=== PATIENT | male | born 1965 | race Caucasian/White ===

== ENCOUNTER 2023-02-10 15:03 | Outpatient (OUT) | payer OTHER, SELFPAY ==
--- NOTE | 2023-02-10 15:15 | MR_ITS ---
[address] [address] Patient Name: NOEL LOBO MRN: [id number] date: 1965 Sex: M Assigned Patient Location: MRI Current Patient Location: MRI Accession/Order Number: [id number] Exam Date: 02/10/2023 15:59 Report Date: 02/11/2023 10:57 At the request of: CARLIN MERCADO Procedure: MR cervical spine wo con EXAMINATION: MR cervical spine wo con HISTORY: Cervical radicular pain M54.12 ; neck and left shoulder pain COMPARISON: CT C-spine 01/22/2023, MRI C-spine 07/15/2022 TECHNIQUE: A variety of imaging planes and parameters were utilized for visualization of suspected pathology without and/or with intravenous Dotarem contrast based on examination type. FINDINGS: CRANIOCERVICAL AREA: Normal foramen magnum with no Chiari malformation. PARASPINAL AREA: Normal with no visible mass. BONES: No fracture, pars defect, or osseous lesion. CORD: Normal caliber, contour, and signal intensity. CERVICAL DISC LEVELS: C2-C3: Mild foramen narrowing bilaterally secondary to uncovertebral joint spurring. C3-C4: Marked central canal narrowing. Moderate-marked right, marked left foramen narrowing. Mild diffuse disc bulging without disc at reduction. Mild degenerative facet arthropathy. No significant disc height reduction. C4-C5: Marked central canal narrowing. Moderate-marked foramen narrowing bilaterally. Mild diffuse disc bulging without disc height reduction. Uncovertebral joint spurring and mild degenerative facet arthropathy. C5-C6: Marked central canal and right foramen narrowing. Moderate left foramen narrowing. Mild diffuse disc bulging without disc height reduction. Vertebral joint spurring and mild degenerative facet arthropathy. C6-C7: Mild central canal and moderate-marked foramen narrowing bilaterally. Mild diffuse disc bulging without disc at reduction. Uncovertebral joint spurring and mild degenerative facet arthropathy. C7-T1:. No significant central canal narrowing. Mild foramen narrowing bilaterally. No significant disc bulging. Mild facet arthropathy. IMPRESSION: 1. 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 Electronically authenticated by: MARIMAR BRASHER Date: 02/11/2023 10:57
== END 2023-02-10 15:04 ==
LOC: MRI 15:05
PROVIDERS: PCP Family Medicine; Visit Provider Family Medicine
DX: M54.12 Radiculopathy, cervical region (principal)
CPT/HCPCS: 72141

== ENCOUNTER 2023-12-26 15:40 | Outpatient (OUT) | payer OTHER, SELFPAY ==
[2023-12-26 16:37] LABS: Bilirubin Urine NEGATIVE (NEGATIVE); Blood Urine NEGATIVE (NEGATIVE); Clarity Urine CLEAR (CLEAR); Color Urine LT. YELLOW (YELLOW); Glucose Urine UA NEGATIVE (NEGATIVE); Ketones Urine NEGATIVE (NEGATIVE); Leukocyte Esterase Urine NEGATIVE (NEGATIVE); Nitrite Urine NEGATIVE (NEGATIVE); Protein Urine NEGATIVE (NEG/TRACE); Urobilinogen Urine 0.2 EU/dL (0.2-1.0)
[2023-12-26 17:00] LABS: Bacteria Urine NONE SEEN #/HPF (NONE SEEN); Cast Seen? NONE SEEN #/LPF (NONE SEEN); Crystals Seen? None Seen #/HPF (None Seen); Mucus Urine NONE SEEN (NONE SEEN); RBC Urine NONE SEEN #/HPF (0-2); Squamous Epithelial Cell Urine NONE SEEN #/LPF (NONE/RARE); WBC Urine NONE SEEN #/HPF (NONE SEEN)
== END 2023-12-26 15:41 | disposition home or self-care (01) ==
LOC: LAB 15:42
PROVIDERS: PCP Family Medicine; Visit Provider Family Medicine
DX: N39.0 Urinary tract infection, site not specified (principal)
CPT/HCPCS: 81001; 87086

== ENCOUNTER 2024-01-13 15:00 | Outpatient (OUT) | payer OTHER, SELFPAY ==
--- NOTE | 2024-01-13 | XR_ITS ---
The [address] [address] Patient Name: NOEL LOBO MRN: [id number] date: 1965 Sex: M Assigned Patient Location: Current Patient Location: Accession/Order Number: [id number] Exam Date: 01/13/2024 15:00 Report Date: 01/14/2024 06:36 At the request of: TIARRA THORPE Procedure: XR foot LT min 3V PROCEDURE: XR foot LT min 3V HISTORY: LEFT FOOT PAIN ; arch and heel pain COMPARISON: None. FINDINGS: BONES:No fracture, dislocation, bone lesion. Mild degenerative joint disease of the midfoot. Moderate size calcaneal plantar spur and Achilles tendon degenerative enthesophyte. SOFT TISSUES:No visible soft tissue swelling. EFFUSION:None visible. OTHER: Negative. XR/XR foot LT min 3V IMPRESSION: 1. No appreciable acute abnormality. 2. Mild degenerative changes. Electronically authenticated by: MARIAMR BRASHER Date: 01/14/2024 06:36
== END 2024-01-13 15:01 | disposition home or self-care (01) ==
LOC: EC 15:00
PROVIDERS: PCP Family Medicine; Visit Provider Podiatrist Foot & Ankle Surgery
DX: M79.672 Pain in left foot (principal)
CPT/HCPCS: 73630

== ENCOUNTER 2024-01-16 11:41 | Outpatient (OUT) | payer OTHER, SELFPAY ==
[2024-01-16 13:38] LABS: Bilirubin Urine NEGATIVE (NEGATIVE); Blood Urine NEGATIVE (NEGATIVE); Clarity Urine CLEAR (CLEAR); Color Urine LT. YELLOW (YELLOW); Glucose Urine UA NEGATIVE (NEGATIVE); Ketones Urine NEGATIVE (NEGATIVE); Leukocyte Esterase Urine NEGATIVE (NEGATIVE); Nitrite Urine NEGATIVE (NEGATIVE); Protein Urine NEGATIVE (NEG/TRACE); Urobilinogen Urine 0.2 EU/dL (0.2-1.0)
[2024-01-16 13:45] LABS: Bacteria Urine NONE SEEN #/HPF (NONE SEEN); Cast Seen? NONE SEEN #/LPF (NONE SEEN); Crystals Seen? None Seen #/HPF (None Seen); Mucus Urine NONE SEEN (NONE SEEN); RBC Urine 0-2 #/HPF (0-2); Squamous Epithelial Cell Urine RARE #/LPF (NONE/RARE); WBC Urine NONE SEEN #/HPF (NONE SEEN)
== END 2024-01-16 11:42 | disposition home or self-care (01) ==
LOC: LAB 11:43
PROVIDERS: PCP Family Medicine; Visit Provider Family Medicine
DX: N32.89 Other specified disorders of bladder (principal)
CPT/HCPCS: 81001; 87086

== ENCOUNTER 2024-02-09 15:18 | Outpatient (RCR) | payer OTHER, SELFPAY | END 2024-02-16 15:36 | disposition home or self-care (01) | LOC: PT 15:18 | PROVIDERS: PCP Family Medicine; Visit Provider Podiatrist Foot & Ankle Surgery | DX: M72.2 Plantar fascial fibromatosis (principal); M79.672 Pain in left foot | CPT/HCPCS: 97110; 97140; 97162 ==

== ENCOUNTER 2024-04-05 14:50 | Outpatient (OUT) | payer OTHER, SELFPAY ==
--- NOTE | 2024-04-05 14:54 | US_ITS ---
The [address] [address] Patient Name: NOEL LOBO MRN: [id number] date: 1965 Sex: M Assigned Patient Location: MRI Current Patient Location: MRI Accession/Order Number: [id number] Exam Date: 04/05/2024 16:30 Report Date: 04/07/2024 05:57 At the request of: CARLIN MERCADO Procedure: US soft tissue head and neck EXAMINATION: US soft tissue head and neck HISTORY: Cervical Disc Degeneration at C5-C6 Level ; chronic left neck pain COMPARISON: No relevant comparison available. FINDINGS: Ultrasound evaluation in images patient's tenderness demonstrates several benign-appearing lymph nodes, largest is 1.2 x 0.2 x 0.6 cm. No mass or fluid collection. US/US soft tissue head and neck IMPRESSION: 1. No abnormal or suspicious findings to account for patient's symptoms. Electronically authenticated by: MARIMAR BRASHER Date: 04/07/2024 05:57
--- NOTE | 2024-04-05 14:58 | MR_ITS ---
[address] [address] Patient Name: NOEL LOOB MRN: [id number] date: 1965 Sex: M Assigned Patient Location: MRI Current Patient Location: Accession/Order Number: [id number] Exam Date: 04/05/2024 15:05 Report Date: 04/07/2024 05:42 At the request of: CALRIN MERCADO Procedure: MR cervical spine wo con EXAMINATION: MR cervical spine wo con HISTORY: Cervical Disc Degeneration at C5-C6 Level ; chronic neck pain COMPARISON: MR cervical spine 02/10/2023 TECHNIQUE: A variety of imaging planes and parameters were utilized for visualization of suspected pathology without and/or with intravenous Dotarem contrast based on examination type. FINDINGS: CRANIOCERVICAL AREA: Normal foramen magnum with no Chiari malformation. PARASPINAL AREA: Normal with no visible mass. BONES: No fracture, pars defect, or osseous lesion. CORD: Normal caliber, contour, and signal intensity. CERVICAL DISC LEVELS: C2-C3: Mild-moderate foramen narrowing bilaterally secondary to uncovertebral joint spurring and mild facet arthropathy. Minimal disc bulging. C3-C4: Moderate central canal and right foramen narrowing. Marked left foramen narrowing. Mild diffuse disc bulging without disc height reduction. Uncovertebral joint spurring and moderate degenerative arthropathy of the left facet joint. C4-C5: Moderate central canal and moderate-marked foramen narrowing bilaterally. Minimal disc bulging without disc at reduction. Uncovertebral joint spurring and moderate degenerative facet arthropathy bilaterally. C5-C6: Moderate-marked central canal and right foramen narrowing. Moderate left foramen narrowing. Mild diffuse disc bulging without disc at reduction. Uncovertebral joint spurring and mild degenerative facet arthropathy bilaterally. C6-C7: Mild central canal narrowing. Moderate-marked foramen narrowing bilaterally. Mild diffuse disc bulging without disc at reduction. Uncovertebral joint spurring and mild facet arthropathy. C7-T1:. No central canal narrowing. Moderate foramen narrowing bilaterally. No significant disc bulging. Uncovertebral joint spurring and mild facet arthropathy. MR/MR cervical spine wo con IMPRESSION: 1. Moderate to marked central canal narrowing throughout majority of the central canal which appears to predominantly due to congenital narrowing which is exacerbated by limited degenerative changes. 2. Multilevel moderate to marked foramen narrowing which is also likely a component of developmental narrowing which is exacerbated by overall mild degenerative changes. Electronically authenticated by: MARIMAR BRASHER Date: 04/07/2024 05:42
--- OUTSIDE RECORDS SUMMARY | 2024-04-05 15:11 | XMS_ITS | CCD ---
Author Organization [facility]ini[facility] Care Team Providers Care Senior Scheduler Name Role Phone ROEGLIO ., DR GILLIS Admitting Unavailable HOY ., DR GILLIS Attending Unavailable HOY ., DR GILLIS Primary Care Unavailable HOY ., DR GILLIS Consulting Unavailable ADRIAN, DR MARMOLEJO Admitting Unavailable ADRIAN, DR MARMOLEJO Attending Unavailable HOY ., DR GILLIS Primary Care Unavailable HOY ., DR GILLIS Consulting Unavailable HOY ., DR GILLIS Admitting Unavailable HOY ., DR GILLIS Attending Unavailable HOY ., DR GILLIS Primary Care Unavailable HOY ., DR GILLIS Consulting Unavailable WEST, DR DHIRAJ Flanagan Consulting Unavailable HOY ., DR GILLIS Admitting Unavailable HOY ., DR GILLIS Attending Unavailable HOY ., DR GILLIS Primary Care Unavailable HOY ., DR GILLIS Consulting Unavailable WEST, DR DHIRAJ Flanagan Consulting Unavailable ELIA BISHOP Admitting Unavailable ELIA BISHOP Attending Unavailable HOY ., DR GILLIS Primary Care Unavailable Marimar Price Consulting Unavailable ELIA BISHOP Consulting Unavailable Didi Flores Unavailable Allergies Allergy Classification Reported Allergen(s) Allergy Type Date of Onset Reaction(s) Facility (1 source) Iodine (And Iodine Containting Drugs) Drug allergy (disorder) 5 [facility] Repository (1 source) Sulfonamides (Antibiotic) Drug allergy (disorder) 5 [facility] Repository (1 source) Iodinated contrast media (substance) Drug allergy Unknown Blue Source Other (1 source) Substance with sulfonamide structure and antibacterial mechanism of action (substance) Drug allergy Unknown Blue Source Other (1 source) Contrast Allergy PreMed Pack Drug allergy Unknown Blue Source Other Medications Current Medications Medication Drug Class(es) Dates Sig (Normalized) Sig (Original) allopurinol 300 mg oral tablet (1 source) Xanthine Oxidase Inhibitor take 1 tablet by mouth every twenty-four hours Allopurinol 300 MG 1 tablet Orally Once a day Active diclofenac sodium 75 mg delayed release oral tablet (1 source) Nonsteroidal Anti-inflammator y Drug take 1 tablet by mouth every twelve hours Diclofenac Sodium 75 MG 1 tablet as needed Orally Twice a day Active hydroCHLOROthiazide 25 mg oral tablet (1 source) Thiazide Diuretic take 1 tablet by mouth every twenty-four hours hydroCHLOROthiazide 25 MG 1 tablet in the morning Orally Once a day Active metoprolol tartrate 100 mg oral tablet (1 source) beta-Adrenergic Petra take 1 tablet by mouth every twelve hours Metoprolol Tartrate 100 MG 1 tablet with food Orally Twice a day Active ramipril 10 mg oral capsule (1 source) Angiotensin Converting Enzyme Inhibitor take 1 capsule by mouth every twenty-four hours Ramipril 10 MG 1 capsule Orally Once a day Active Problems Active Problems Problem Classification Problem Date Documented Date Episodic/Chronic Headache; including migraine (4 sources) Headache; including migraine; Translations: [HEADACHE UNSPECIFIED] Onset: 07-15-2022 Occlusion or stenosis of precerebral arteries (4 sources) Occlusion and stenosis of bilateral carotid arteries; Translations: [OCCLUSION AND STENOS JEAN CARLOS CAROTID ART] Onset: 12-06-2022 Chronic Other acquired deformities (1 source) Acquired spondylolisthesis; Translations: [Spondylolysis, cervicothoracic region] Episodic Other connective tissue disease (1 source) Pain in right arm; Translations: [PAIN IN RIGHT ARM] Onset: 09-20-2022 Episodic Other non-traumatic joint disorders (1 source) Pain in right shoulder; Translations: [PAIN IN RIGHT SHOULDER] Onset: 09-20-2022 Episodic Spondylosis; intervertebral disc disorders; other back problems (4 sources) Other cervical disc degeneration at C5-C6 level; Translations: [OTHER CERVICAL DISC DEG C5-C6 LEVEL] Onset: 06-27-2022 Chronic Spondylosis; intervertebral disc disorders; other back problems (4 sources) Cervicalgia; Translations: [CERVICALGIA] Onset: 09-10-2022 Episodic Past or Other Problems Problem Classification Problem Date Documented Da te Episodic/Chronic Other screening for suspected conditions (not mental disorders or infectious disease) (1 source) Encounter for screening for malignant neoplasm of prostate; Translations: [ENC SCREEN MALIG NEOPLASM PROSTATE] Onset: 06-23-2022 Episodic Results Test Name Value Interpretation Reference Range Facility US CAROTID ART BILon 023 US CAROTID ART JEAN CARLOS EXAMINATION: US CAROTID ART JEAN CARLOS HISTORY: Pain of head and neck region ; tingling sensation between left ear and clavicle COMPARISON: No relevant comparison available. TECHNIQUE: Duplex Doppler ultrasound analysis of carotid and vertebral arteries. . Bilateral carotid arterial duplex examination was performed using B-mode, color flow and spectral analysis. Carotid stenosis is reported according to validated velocity parameters, similar to NASCET criteria. FINDINGS: RIGHT CAROTID ARTERY: No visible stenosis or significant plaque. RIGHT VERTEBRAL: Antegrade flow. Subclavian: PSV: 88.8 cm/s EDV: 8.3 cm/s CCA: Prox: PSV: 103.0 cm/s EDV: 22.8 cm/s Mid: PSV: 87.4 cm/s EDV: 16.3 cm/s Distal: PSV: 77.0 cm/s EDV: 18.9 cm/s BULB: PSV: 57.7 cm/s EDV: 16.3 cm/s ICA: Prox: PSV: 52.9 cm/s EDV: 21.5 cm/s Mid: PSV: 59.8 cm/s EDV: 25.8 cm/s Distal: PSV: 76.5 cm/s EDV: 28.1 cm/s ECA: PSV: 108.2 cm/s EDV: 30.5 cm/s VERTEBRAL: PSV: 57.7 cm/s EDV: 16.3 cm/s ICA/CCA ratio: PSV: 1.0 EDV: 1.5 LEFT CAROTID ARTERY: No visible stenosis or significant plaque. LEFT VERTEBRAL: Antegrade flow. Subclavian: PSV: 110.8 cm/s EDV: 12.0 cm/s CCA: Prox: PSV: 106.0 cm/s EDV: 23.6 cm/s Mid: PSV: 91.4 cm/s EDV: 20.3 cm/s Distal: PSV: 84.9 cm/s EDV: 22.0 cm/s BULB: PSV: 54.5 cm/s EDV: 18.2 cm/s ICA: Prox: PSV: 49.0 cm/s EDV: 18.2 cm/s Mid: PSV: 73.2 cm/s EDV: 23.7 cm/s Distal: PSV: 58.9 cm/s EDV: 22.6 cm/s ECA: PSV: 115.5 cm/s EDV: 22.9 cm/s VERTEBRAL: PSV: 50.1 cm/s EDV: 12.8 cm/s ICA/CCA ratio: PSV: 0.9 EDV: 1.1 IMPRESSION: 1. 0-49% flow stenosis within the right and left carotid arteries. 2. No significant atherosclerotic disease or vessel narrowing. 3. No suspicious findings to account for patient's symptoms. Electronically authenticated by: MARIMAR PRICE Date: 2022-12-06 15:40 Normal [facility] MRI BRAIN WO W CONon 022 MRI BRAIN WO W CON EXAMINATION: MRI BRA IN WO W CON HISTORY: Headache COMPARISON: No relevant comparison available. TECHNIQUE: A variety of imaging planes and parameters were utilized for visualization of suspected pathology. Images were performed with Dotarem contrast. FINDINGS: CEREBRUM: Mild to moderate bilateral white matter signal abnormality, subcortical and deep. No restricted diffusion or postcontrast enhancement. CEREBELLUM: No edema, hemorrhage, mass, acute infarction, or inappropriate atrophy. BRAINSTEM: No edema, hemorrhage, mass, acute infarction, or inappropriate atrophy. CSF SPACES: Ventricles, cisterns, and sulci are appropriate for age. No hydrocephalus, subarachnoid hemorrhage, or mass. SKULL: No mass or other significant visible lesion. SINUSES: Minimal paranasal sinus disease most significant in the ethmoid and right sphenoid ORBITS: Limited views are unremarkable. OTHER: No abnormal meningeal or parenchymal enhancement. IMPRESSION: Mild to moderate white matter disease, nonspecific No postcontrast enhancement or restricted diffusion to suggest infarct Electronically authenticated by: DHIRAJ HIGGINS Date: 2022-07-16 09:10 Normal [facility] MRI CSPINE W CONon 2 MRI CSPINE W CON EXAMINATION: MRI CSPINE W CON HISTORY: Headache COMPARISON: No relevant comparison available. TECHNIQUE: A variety of imaging planes and parameters were utilized for visualization of suspected pathology prior to and after ml intravenous Dotarem injection. FINDINGS: CRANIOCERVICAL AREA: Normal foramen magnum with no Chiari malformation. PARASPINAL AREA: Normal with no visible mass. BONES: Normal alignment with no acute fracture or spondylolisthesis. Moderate anterior spondylosis C5-C6. CORD: Normal caliber, contour, and signal intensity. CERVICAL DISC LEVELS: Stable with no significant interval change OTHER: No abnormal postcontrast enhancement IMPRESSION: No abnormal postcontrast enhancement Electronically authenticated by: DHIRAJ HIGGINS Date: 2022-07-16 08:23 Normal [facility] MRI CSPINE WO CONon 06-27-20 22 [facility] EX[facility]: MRI CSPINE WO CON HISTORY: Degeneration of cervical intervertebral disc COMPARISON: No relevant comparison available. TECHNIQUE: A variety of imaging planes and parameters were utilized for visualization of suspected pathology. FINDINGS: CRANIOCERVICAL AREA: Normal foramen magnum with no Chiari malformation. PARASPINAL AREA: Normal with no visible mass. Paranasal sinus mucoperiosteal thickening BONES: Normal alignment with no acute fracture or spondylolisthesis CORD: Normal caliber, contour, and signal intensity. CERVICAL DISC LEVELS: C2-C3: Early degenerative disc disease is present without focal protrusion or neural impingement. C3-C4: No significant disc/facet abnormality, spinal stenosis, or foraminal stenosis. C4-C5: No significant disc/facet abnormality, spinal stenosis, or foraminal stenosis. C5-C6: Early degenerative disc disease is present without focal protrusion or neural impingement. C6-C7: Early degenerative disc disease is present without focal protrusion or neural impingement. C7-T1:. Early degenerative disc disease is present without focal protrusion or neural impingement. IMPRESSION: Minimal degenerative changes. No significant disc bulge or herniation. No central or foraminal stenosis Electronically authenticated by: DHIRAJ HIGGINS Date: 2022-06-27 18:59 Normal [facility] INSULINon 06-20-2022 Insulin 50.7 uIU/mL Critically high 2.6-24.[address] [facility] Comment on above: Performed By: #### I NSULIN ####[facility] [address] [place] [address]DrColby Marsh CBC AUTO DIFFon 06-19-2022 BASO # 0.1 103/ul Normal 0.0-0.1 [facility] Comment on above: Performed By: #### C BC ####[facility] [address] [place] [address]DrColby Marsh Basophils/100 WBC (Bld) 0.9 % Normal 0.2-2.0 [facility] Comment on above: Performed By: #### C BC ####[facility] [address] [place], [place] [address]Dr. Yaron Marsh EO # 0.2 103/ul Normal 0.0-0.7 [facility] Comment on above: Performed By: #### C BC ####[facility] [address] [place], [place] [address]Dr. Yaron Marsh Eosinophils/100 WBC (Bld) 3.4 % Normal 0.9-7.0 [facility] Comment on above: Performed By: #### C BC ####[facility] [address] [place], [place] [address]Dr. Yaron Marsh Erythrocyte distribution width (RBC) [Ratio] 11.6 % Normal 11.0-15.0 [facility] Comment on above: Performed By: #### C BC ####[facility] [address] [place], [place] [address]Dr. Yaron Marsh Hematocrit (Bld) [Volume fraction] 48.2 % Normal 42.0-54.0 [facility] Comment on above: Performed By: #### C BC ####[facility] [address] [place], [place] [address]Dr. Yaron Marsh Hemoglobin (Bld) [Mass/Vol] 16.9 g/dL Normal 14.0-18.0 [facility] Comment on above: Performed By: #### C BC ####[facility] N[address] [place], [place] [address]Dr. Yaron Marsh IG # 0.02 10e3/ul Normal 0.00-0.03 [facility] Comment on above: Performed By: #### C BC ####[facility] Qdp[address]zr[address] [place], [place] [address]Dr. Yaron Marsh IG % 0.3 % Normal 0.0-0.5 [facility] Comment on above: Performed By: #### C BC ####[facility] Ir[address] [place], [place] [address]Dr. Yaron Marsh LYMPH # 2.0 103/ul Normal 1.2-3.8 [facility] Comment on above: Performed By: #### C BC ####[facility] [address] [place] [address]Dr. Yaron Marsh Lymphocytes/100 WBC (Bld) 31.4 % Normal 20.5-60.0 [facility] Comment on above: Performed By: #### C BC ####[facility] [address] [place] [address]Dr. Yaron Marsh MANUAL DIFF REQ NO Normal [facility] Comment on above: Performed By: #### C BC ####[facility] [address] [place] [address]Dr. Yaron Marsh MCH (RBC) [Entitic mass] 35.1 pg Critically high 25.9-34.0 [facility] Comment on above: Performed By: #### C BC ####[facility] [address] [place], [place] [address]Dr. Yaron Marsh MCHC (RBC) [Mass/Vol] 35.1 g/dL Normal 29.9-35.2 [facility] Comment on above: Performed By: #### C BC ####[facility] M[address] [place], [place] [address]Dr. Yaron Marsh MCV (RBC) [Entitic vol] 100.2 fL Critically high 80.0-94.0 [facility] Comment on above: Performed By: #### C BC ####[facility] [address] [place], [place] [address]Dr. Yaron Marsh MONO # 0.5 103/ul Normal 0.3-0.8 [facility] Comment on above: Performed By: #### C BC ####[facility] [address] [place], [place] [address]Dr. Yaron Marsh Monocytes/100 WBC (Bld) 7.1 % Normal 1.7-12.0 [facility] Comment on above: Performed By: #### C BC ####[facility] [address] [place], [place] [address]Dr. Yaron Marsh NEUT # 3.7 103/ul Normal 1.4-6.5 [facility] Comment on above: Performed By: #### C BC ####[facility] [address] [place] [address]Dr. Yaron Maximo Neutrophils/100 WBC (Bld) 56.9 % Normal 43.0-75.0 [facility] Comment on above: Performed By: #### C BC ####[facility] [address] [place] [address]Dr. Yaron Maximo Platelet mean volume (Bld) [Entitic vol] 9.9 fL Normal 9.5-13.5 [facility] Comment on above: Performed By: #### C BC ####[facility] [address] [place] [address]DrColby Marsh PLT 177 103/ul Normal 150-450 [facility] Comment on above: Performed By: #### C BC ####[facility] [address] [place] [address]Dr. Yaron Marsh RBC 4.81 106/ul Normal 4.70-6.10 [facility] Comment on above: Performed By: #### C BC ####[facility] [address] [place] [address]DrColby Yaron Maximo WBC 6.5 103/ul Normal 4.0-11.0 [facility] Comment on above: Performed By: #### C BC ####[facility] [address] [place] [address]DrColby Marsh FREE THYROXINE INDEX T7on FTI 2.05 Normal 1.30-4.50 [facility] Comment on above: Performed By: #### L IPID, T7, CMP, TSH #### [facility] [address] [address] [address] Yaron Marsh T3U 33.0 % Normal 33.0-40.0 [facility] Comment on above: Performed By: #### L IPID, T7, CMP, TSH #### [facility] [address] [address] [address] Yaron Marsh T4 [Mass/Vol] 6.20 ug/dL Normal 4.50-12.10 [facility] Comment on above: Performed By: #### L IPID, T7, CMP, TSH #### [facility] [address] [address] [address] Yaron Marsh GLYCOHEMOGLOBIN A1Con 2021 ADA RECOMMENDATION SEE BELOW Normal [facility] Comment on above: Result Comment: ADA RECOMMENDED LIMIT 4.0 - 6.0 ADA THERAPEUTIC TARGET < 7.0 ACTION SUGGESTED > 7.0 Performed By: #### A 1C #### [facility] [address] [address] [address] Yaron Marsh Glucose [Mass/Vol] 97 mg/dL Normal [facility] Comment on above: Performed By: #### A 1C #### [facility] [address] [address] [address] Yaron Marsh HbA1c (Bld) [Mass fraction] 5.0 % Normal 4.5-6.2 [facility] Comment on above: Performed By: #### A 1C #### [facility] [address] [address] [address] Yaron Marsh LIPID PROFILEon 06-19-2022 CHOL-HDL RATIO NORM SEE BELOW Normal [place] Comment on above: Result Comment: 3.3 - 4.4 LOW RISK 4.4 - 7.1 AVERAGE RISK 7.1 - 11.0 MODERATE RISK >11.0 HIGH RISK Performed By: #### L IPID, T7, CMP, TSH #### [facility] [address] [address] [address] Yaron Marsh Cholesterol [Mass/Vol] 196 mg/dL Normal <=200 [facility] Comment on above: Performed By: #### L IPID, T7, CMP, TSH #### [facility] [address] [address] [address] Yaron Marsh Cholesterol in HDL [Mass/Vol] 57 mg/dL Normal 40-60 [facility] Comment on above: Performed By: #### L IPID, T7, CMP, TSH #### [facility] [address] [address] [address] Yaron Marsh Cholesterol in LDL [Mass/Vol] 122.6 mg/dL Normal [facility] Comment on above: Performed By: #### L IPID, T7, CMP, TSH #### [facility] [address] [address] [address] Yaron Marsh Cholesterol.total/Ch olesterol in HDL [Mass ratio] 3.4 {ratio} Normal [facility] Comment on above: Performed By: #### L IPID, T7, CMP, TSH #### [facility] [address] [address] [address] Yaron Marhs HDL NORMAL > or = 60 mg/dl - LO W CARDIOVASCULAR RISK <40 mg/dl - HIGH CARDIOVASCULAR RISK Normal [facility] Comment on above: Performed By: #### L IPID, T7, CMP, TSH #### [facility] [address] [address] [address] Yaron Marsh LDL CALC NORMAL SEE BELOW Normal [facility] Comment on above: Result Comment: <100 mg/dl OPTIMAL 100 - 129 mg/dl NEAR OR ABOVE OPTIMAL 130 - 159 mg/dl BORDERLINE HIGH 160 - 189 mg/dl HIGH >190 mg/dl VERY HIGH Performed By: #### L IPID, T7, CMP, TSH #### [facility] [address] [address] [address] Yaron Marsh Triglyceride [Mass/Vol] 82 mg/dL Normal <=150 [facility] Comment on above: Performed By: #### L IPID, T7, CMP, TSH #### [facility] [address] [address] [address] Yaron Marsh VLDL CALC 16.4 mg/dL Normal [facility] Comment on above: Performed By: #### L IPID, T7, CMP, TSH #### [facility] [address] [address] [address] Yaron Marsh PROF 14(COMP METB)on 022 Albumin [Mass/Vol] 3.8 g/dL Normal 3.4-5.0 [facility] Comment on above: Performed By: #### L IPID, T7, CMP, TSH #### [facility] [address] [address] [address] Yaron Marsh Albumin/Globulin [Mass ratio] 1.2 {ratio} Normal [facility] Comment on above: Performed By: #### L IPID, T7, CMP, TSH #### [facility] [address] [place] [address] Dr. Yaron Marsh ALP [Catalytic activity/Vol] 94 U/L Normal 46-116 [facility] Comment on above: Performed By: #### L IPID, T7, CMP, TSH #### [facility] [address] [place] [address] Dr. Yaron Marsh ALT [Catalytic activity/Vol] 124 U/L Critically high 16-63 [facility] Comment on above: Performed By: #### L IPID, T7, CMP, TSH #### [facility] [address] [place] [address] Dr. Yaron Marsh Anion gap [Moles/Vol] 8.6 mmol/L Normal [facility] Comment on above: Performed By: #### L IPID, T7, CMP, TSH #### [facility] [address] [place] [address] Dr. Yaron Marsh AST [Catalytic activity/Vol] 79 U/L Critically high 15-37 [facility] Comment on above: Performed By: #### L IPID, T7, CMP, TSH #### [facility] [address] [address] [address] Yaron Marsh Bilirubin [Mass/Vol] 0.6 mg/dL Normal 0.2-1.0 [facility] Comment on above: Performed By: #### L IPID, T7, CMP, TSH #### [facility] [address] [place] [address] Dr. Yaron Marsh Calcium [Mass/Vol] 9.3 mg/dL Normal 8.5-10.1 [facility] Comment on above: Performed By: #### L IPID, T7, CMP, TSH #### [facility] [address] [place] [address] Dr. Yaron Marsh Chloride [Moles/Vol] 106 mmol/L Normal 98-107 [facility] Comment on above: Performed By: #### L IPID, T7, CMP, TSH #### [facility] [address] [address] [address] Yaron Marsh CO2 [Moles/Vol] 29.3 mmol/L Normal 21.0-32.[address] [facility] Comment on above: Performed By: #### L IPID, T7, CMP, TSH #### [facility] [address] [address] [address] Yaron Marsh Creatinine [Mass/Vol] 0.69 mg/dL Critically low 0.70-1.30 [facility] Comment on above: Performed By: #### L IPID, T7, CMP, TSH #### [facility] [address] [address] [address] Yaron Marsh EGFR-AF IVORIAN >60 Normal >=[address] [facility] Comment on above: Performed By: #### L IPID, T7, CMP, TSH #### [facility] [address] [address] [address] Yaron Marsh EGFR-NON AF IVORIAN >60 Normal >=60 [facility] Comment on above: Performed By: #### L IPID, T7, CMP, TSH #### [facility] [address] [address] [address] Yaron Marsh Globulin (S) [Mass/Vol] 3.3 g/dL Normal [facility] Comment on above: Performed By: #### L IPID, T7, CMP, TSH #### [facility] [address] [address] [address] Yaron Marsh Glucose [Mass/Vol] 104 mg/dL Normal 74-106 [facility] Comment on above: Performed By: #### L IPID, T7, CMP, TSH #### [facility] [address] [address] [address] Yaron Marsh Potassium [Moles/Vol] 4.9 mmol/L Normal 3.5-5.1 [facility] Comment on above: Performed By: #### L IPID, T7, CMP, TSH #### [facility] [address] [place] [address] Dr. Yaron Marsh Protein [Mass/Vol] 7.1 g/dL Normal 6.4-8.2 [facility] Comment on above: Performed By: #### L IPID, T7, CMP, TSH #### [facility] [address] [place] [address] Dr. Yaron Marsh Sodium [Moles/Vol] 139 mmol/L Normal 136-145 [facility] Comment on above: Performed By: #### L IPID, T7, CMP, TSH #### [facility] [address] [place] [address] Dr. Yaron Marsh Urea nitrogen [Mass/Vol] 18.0 mg/dL Normal 7.0-18.0 [facility] Comment on above: Performed By: #### L IPID, T7, CMP, TSH #### [facility] [address] [place] [address] Dr. Yaron Marsh Urea nitrogen/Creatinine [Mass ratio] 26.1 mg/mg Normal [facility] Comment on above: Performed By: #### L IPID, T7, CMP, TSH #### [facility] [address] [place] [address] Dr. Yaron Marsh [facility] [place] 06-19-2022 TSH 3.272 uIU/mL Normal 0.358-3.740 [facility] Comment on above: Performed By: #### L IPID, T7, CMP, TSH #### [facility] [address] [place] [address] Dr. Yaron Marsh Vital Signs Date Time Vital Sign Value Performing Clinician Cesilia licona 03-31-2023 13:00-0400 Body height Didi Blades Other [facility] Other 03-31-2023 13:00-0400 Body mass index (BMI) [Ratio] 32.1 kg/m2 Didi Blades Other [facility] Other 03-31-2023 13:00-0400 Body weight 92.99 kg Didi Blades Other [facility] Other 03-31-2023 13:00-0400 Diastolic blood pressure 90 mm[Hg] Didi Blades Other [facility] Other 03-31-2023 13:00-0400 Systolic blood pressure 138 mm[Hg] Didi Blades Other [facility] Other Encounters Encounter Date Encounter Type Care Provider Facility Start: 03-31-2023 End: 03-31-2023 ambulatory Didi Blades Other [facility] Other Start: 03-31-2023 Office outpatient ne w 45 minutes Didi Blades [facility] Start: 12-06-2022 End: 12-07-2022 ambulatory ELIA BISHOP Facility:[facility] Start: 09-10-2022 End: 10-18-[address] FRANCIE CAMPBELL Facility:[facility] Start: 07-15-2022 End: 07-16-[address] CARLIN MERCADO . Facility:[facility] Start: 06-27-2022 End: 06-28-[address] CARLIN MERCADO . Facility:[facility] Start: 06-23-2022 Encounter for genera l adult medical examination without abnormal findings DR CARLIN MERCADO . [facility] Start: 06-19-2022 End: 06-20-[address] CARLIN MERCADO . Facility:[facility] Start: 06-19-2022 End: 06-20-2022 Encounter for general adult medical examination without abnormal findings DR CARLIN MERCADO . Facility:[facility] Procedures Date Procedure Procedure Detail Performing Clinician Start: 06-19-[address] JOHN MERCADO . Comment on above: Performed By: #### [facility] #### [facility] [address] [place] [address] Dr. Yaron Marsh Payers Date Payer Category Payer Unknown [id number] 2.16.84 [id number] 1965 Unknown [id number] 2.16.84 [id number] 1965 Unknown [id number] 2.16.84 [id number] 1967 Unknown [id number] 2.16.84 [id number] 1967 Unknown [id number] 2.16.84 [id number] 1959 Unknown [id number] 1957 Unknown [id number] Social History Date Type Detail Facility Sex Assigned At [facility] Other Evaluation note Note Date & Type Note Facility Evaluation note No Information [facility] Other History general Narrative - Reported Note Date & Type Note Facility History general Narrative - Reported Type Medical History Gout Medical History high blood pressure Surgical History hernia repair Surgical History elbow surgery Hospitalization History see above surg. hx. [facility] Other Summary Purpose Family History No Family History Records Found Advance Directives No Advanced Directives Records Found Additional Source Comments (unrecognized sect ion and content) No Status Records Found INFORMATION SOURCE (unrecogn ized section and content) DATE CREATED AUTHOR 12/15/2022 [facility] REASON FOR VISIT (unrecogniz ed section and content) Neck discomfort; numbness an d tingling along the hands FOR RECORDS PERTAINING TO PATIENTS WHO ARE OR HAVE BEEN ENROLLED IN A CHEMICAL DEPENDENCY/SUBSTANCEABUSE PROGRAM, SOME INFORMATION MAY BE OMITTED. This clinical summary was aggregated from multiple sources. Caution should be exercised in using it in the provision of clinical care. This summary normalizes information from multiple sources, and as a consequence, information in this document may materially change the coding, format and clinical context of patient data. In addition, data may be omitted in some cases. CLINICAL DECISIONS SHOULD BE BASED ON THE PRIMARY CLINICAL RECORDS. [facility]. provides no warranty or guarantee of the accuracy or completeness of information in this document.
== END 2024-04-05 14:51 | disposition home or self-care (01) ==
LOC: MRI 14:50
PROVIDERS: PCP Family Medicine; Visit Provider Family Medicine
DX: M50.322 Other cervical disc degeneration at C5-C6 level (principal); M43.03 Spondylolysis, cervicothoracic region
CPT/HCPCS: 72141; 76536

== ENCOUNTER 2025-04-02 11:35 | Outpatient (OUT) | payer OTHER, SELFPAY ==
--- OUTSIDE RECORDS SUMMARY | 2024-09-13 11:50 | XMS_ITS ---
Author Organization [facility] [place] Address [address] [place] [address] Care Team Providers Care Director Institution Name Role Phone Castro Marroquin Primary Care Provider [phone] REASON FOR VISIT rf Metoprolol Medications Medication SIG (Take, Route, Frequency, Duration) Notes Start Date End Date Status Metoprolol Tartrate 100 MG 1 tablet with food Orally 1 am and 2 evening for 90 days Active Encounters Encounter Location Date Provider Diagnosis [facility] ([place], [place]) [address] [place] [address] 09/13/2024 Castro Marroquin Plan Of Treatment Medication Medication Name Sig Start Date Stop Date Notes Metoprolol Tartrate 100 MG 1 tablet with food Orally 1 am and 2 evening for 90 days Progress Notes * Perez LOBO JrDOB:[birth year] (59 yo M)Acc No.[id number]:09/13/2024 Patient: Panchito SULLIVANPerez Jr :1965 A ge:59 Y S ex:Male Address:[address] [place] [phone] * Refills Refill Metoprolol Tartrate Tablet, 100 MG, Orally, 270, 1 tablet with food, 1 am and 2 evening, 90 days, Refills=3 * true * Date: Generated for Printi ng/Famegang/eTransmitting on: 0 04/02/2025 11:39 AM EDT
--- OUTSIDE RECORDS SUMMARY | 2024-09-14 11:45 | XMS_ITS ---
Author Organization [facility] Address [address] [place] [address] Care Team Providers Care Highway Maintenance Crew Worker Name Role Phone Cristian Marroquin Primary Care Provider UnavailRita Serrato Unavailable [phone] Abram Savage Unavailable [phone] REASON FOR VISIT 3 month follow up has to have 3:45 Encounters Encounter Location Date Provider Diagnosis [facility] [address] [place] [phone] 09/14/2024 Abram Savage Plan Of Treatment Next Appt Details Provider Name:Abram Andino Janette, 1 03:45:00 PM, [address] [place] [address], [phone], Progress Notes * NOEL LOBODOB:[birth year] (60 yo M)Acc No.[id number]:09/14/2024 Patient: JAYA PISANOALD Provider: Lila Savage MD :1965 A ge:59 Y S ex:Male Date:09/14/2024 Address:[address] [place] [phone] Pcp:Cristian Marroquin Subjective: * Chief Complaints: * 1 . 3 month follow up has to have 3:45. * Medical History: Objective: * Vitals: Assessment: Plan: * Treatment: Forms: * Images: * Electronic signature of Abram Savage MD on 04/02/2025 at 11:39 AM EDT Sign off status: Pending * Provider: Lila Savage MD Date: 0 09/14/2024 Generated for Parvez carbajal/Sara/Tigre on: 0 04/02/2025 11:39 AM EDT
--- OUTSIDE RECORDS SUMMARY | 2025-03-15 12:01 | XMS_ITS ---
Author Organization [facility] [place] Address [address] [place] [address] Care Team Providers Care Emissions Testing Technician Name Role Phone Castro Marroquin Primary Care Provider REASON FOR VISIT yearly appointment Medications Medication SIG (Take, Route, Fr equency, Duration) Notes Start Date End Date Status Allopurinol 300 MG 1 tablet Orally Once a day for 90 days Active Encounters Encounter Location Date Provider Diagnosis [facility] [address] [place] [address] 03/15/2025 Castro Marroquin Plan Of Treatment Medication Medication Name Sig Start Date Stop Date Notes Allopurinol 300 MG 1 tablet Orally Once a day for 90 days Progress Notes * Perez LOBO JrDOB:[birth year] (60 yo M)Acc No.[id number]:03/15/2025 Patient: Panchito SULLIVANPerez Jr :1965 A ge:60 Y S ex:Male Address:[address] [place] [phone] * Refills Refill Allopurinol Tablet, 300 MG, Orally, 90 Tablet, 1 tablet, Once a day, 90 days, Refills=0 * true * Date: Generated for Printi ng/Faxing/eTransmitting on: 0 04/02/2025 11:39 AM EDT
--- OUTSIDE RECORDS SUMMARY | 2025-03-28 11:00 | XMS_ITS ---
Author Organization [facility] [place] Address [address] [place] [address] Care Team Providers Care Field Machinist Name Role Phone Castro Marroquin Primary Care Provider Allergies Allergen (clinical drug ingredient) Drug/Non Drug Allergy documented on EMR Reaction Allergy Type Onset Date Status Substance with sulfonamide structure and antibacterial mechanism of action (substance) Sulfa Antibiotics canker sore Drug Allergy Active REASON FOR VISIT yearly wellness exam Medications Medication SIG (Take, Route, Frequency, Duration) Notes Start Date End Date Status Ramipril 10 MG 2 capsule Orally Onc e a day for 90 days Active Allopurinol 300 MG 1 tablet Orally Once a day for 90 days Active Gabapentin 400 MG 1 capsule Orally tid Active Metoprolol Tartrate 100 MG 1 tablet with food Orally 1 am and 2 evening for 90 days Active Ibuprofen 800 MG 1 tablet with food o r milk as needed Orally QID for 30 days PRN 03/31/2023 Active hydroCHLOROthiazide 25 MG 1 tablet in th e morning Orally Once a day for 90 days Active Social History Tobacco Use: Social History Observation Description Date Details (start date - stop date) Never Smoker NA - NA Tobacco Use/Smoking Question Answer Notes Patient is a nonsmoker Tobacco use other than smoking: Question Answer Notes Are you an other tobacco user? Yes c hews AUDIT-C (Standard) Question Answer Notes Did you have a drink contain ing alcohol in the past year? Yes How often did you have six o r more drinks on one occasion in the past year? 4 or more times a week (4 points) How many drinks did you have on a typical day when you were drinking in the past year? 5 or 6 drinks (2 points) How often did you have a dri nk containing alcohol in the past year? Daily or almost daily (4 points) Points 10 Interpretation Positive Vital Signs Blood pressure systolic 130 mm Hg 03/28/20 25 Blood pressure diastolic 80 mm Hg 025 Height 68 in 03/28/2025 Weight 209 lbs 03/28/2025 BMI 31.77 kg/m2 03/28/2025 Encounters Encounter Location Date Provider Diagnosis [facility] [address] [place] [address] 03/28/2025 Castro Marroquin Well adult Z00.0 0 Assessments Encounter Date Diagnosis (ICD Code) Assessment Notes Treatment Notes Treatment Clinical Notes Section Notes 03/28/2025 Well adult (ICD-10 - Z00.00) Plan Of Treatment Pending Test Test Name Order Date HEMOGLOBIN A1C (GLYCO) 03/28/2025 INSULIN, TOTAL 03/28/2025 LIPID PANEL (CHOL/TRIG/HDL/LDL) 03/28/20 25 URIC ACID 03/28/2025 STOOL OCCULT BLOOD 03/28/2025 THYROID PANEL (T4/TSH/FREE T3) 5 PSA, SCREENING 03/28/2025 CMP (COMP MET MORA) w/eGFR CKD-EPI 2024 CBC WITH DIFF 03/28/2025 Medications Administered Medication Instructions Date of Administration Dosage Notes Ketorolac Tromethamine 03/28/2025 60 mg Triamcinolone 40 mg/ml 03/28/2025 120 mg Progress Notes * Perez LOBO JrDOB:[birth year] (60 yo M)Acc No.[id number]:03/28/2025 Progress Note Patient: Perez PISANO Provider: Luis Armando Marroquin ([facility])MD :1965 A ge:60 Y S ex:Male Date:03/28/2025 Address:[address] [place], [place] [phone] Check In:02:49 PM ESTCheck O ut:03:31 PM EST Subjective: * Chief Complaints: * Y early wellness exam * HPI: D epression Screening: PHQ-2 (2015 Edition) L ittle interest or pleasure in doing things??Not at all F eeling down, depressed, or hopeless? N ot at all T otal Score 0 HTN - stabel on meds needs labs R latteral elbow - tenderns. * ROS: E ENT: hearing changes d enies. v isual changes d enies.?non-healing mouth sores d enies. s wollen glands or neck lumps d enies. h oarseness d enies. s ore throat d enies. d ifficulty swallowing d enies. n ose bleeds d enies. n yamila congestion d enies. e ar ache d enies. e ar discharge?denies. r inging in ears d enies. l ight sensitivity d enies. e ye pain d enies. b lurring d enies. e ye irritation d enies. d ouble vision d enies.?vision loss d enies. G eneral/Constitutional: Sweats: D enies. F atigue d enies. S leep problems d enies. A norexia d enies. M alaise d enies. W eight loss d enies.?Fatigue or Weakness d enies. F ever or Chills d enies. C ardiovascular: Shortness of Breath w/lying flat d enies. L ightheadedness/dizziness d enies. C hest tightness/ heavy pressure d enies. S welling of legs, ankles, or feet d enies. W aking up with shortness of breath d enies. C hest pain denies. P alpitations d enies. W eight gain d enies. R espiratory: Chronic or frequent cough d enies. C oughing up blood?denies. D ifficulty breathing d enies. P roductive cough d enies. S noring?denies. S hortness of breath that awakens from sleep (PND) d enies. C hest pain d enies. S putum production d enies. W heezing d enies. M usculoskeletal: Joint pain d enies. J oint Fluid d enies. B ack pain d enies. K nee pain d enies. N evie pain d enies. J oint Stiffness d enies. M uscle cramps d enies. W eakness of muscles d enies. A rthritis d enies. M uscle aches d enies. P ain in shoulder(s) d enies. S wollen joints d enies. 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, cervi cothoracic region Modified On:02/18/2023 Status:confirmed M54.2 Cervicalgia Modified On:02/18/2023 Status:confirmed R07.9 Chest pain Modified On:01/28/2023 Status:confirmed I10 Hypertension Modified On:01/28/2023 Status:confirmed M10.9 Gout Modified On:01/28/2023 Status:confirmed M25.569 Knee pain Modified On:01/28/2023U Status:confirmed F10.10 Alcohol abuse Modified On:01/28/2023U Status:confirmed R60.0 Edema leg Modified On:01/28/2023U Status:confirmed Z00.00 Well adult Modified On:01/28/2023 Status:confirmed M54.30 Sciatica Modified On:01/28/2023U Status:confirmed 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 Modified On:01/28/2023U Status:confirmed K40.90 Hernia, inguinal, le ft Modified On:01/28/2023U Status:confirmed 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 Modified On:01/28/2023U Status:confirmed M54.6 Back pain, thoracic Modified On:01/28/2023U Status:confirmed H65.90 Otitis media, serous Modified On:01/28/2023U Status:confirmed G56.03 Carpal tunnel syndro me, bilateral upper limbs Modified On:01/28/2023U Status:confirmed M50.322 Other cervical disc degeneration at C5-C6 level Modified On:01/28/2023U Status:confirmed R51.9 Headache, unspecifie d Modified On:01/28/2023U Status:confirmed M54.50 Chronic midline low back pain without sciatica Modified On:01/28/2023U Status:confirmed M70.21 Olecranon bursitis, right Modified On:01/28/2023U Status:confirmed M54.12 Cervical radicular p ain Modified On:01/29/2023U Status:confirmed M72.2 Plantar fasciitis Modified On:10/29/2023U Status:confirmed R30.0 Dysuria Modified On:12/04/2023 Status:confirmed N39.0 Acute UTI Modified On:12/26/2023U Status:confirmed M79.672 Left foot pain Modified On:01/13/2024U Status:confirmed M72.2 Plantar fascial fibr omatosis Modified On:01/13/2024U Status:confirmed M24.572 Contracture, left an kle Modified On:01/13/2024U Status:confirmed N32.89 Bladder spasm Modified On:01/16/2024U Status:confirmed G95.9 Cervical myelopathy Modified On:05/10/2024 Status:confirmed * Medical History: * Surgical History: G roin surgery Right elbow * Hospitalization/Major Diagno stic Procedure: N o Hospitalization History. * Family History: F ather: 62 yrs, diagnosed with Other malignant neoplasm of unspecified site. M other: alive. B rother(s): alive. S ister(s): alive. S on(s): alive. D darrion(s): alive. 1 brother(s) , 1 sister(s) - healthy. 1 son(s) , 3 daughter(s) - healthy. . * Social History: T obacco Use: T obacco use other than smoking A re you an other tobacco user? Y es chews Tobacco Use/Smoking P atient is a n onsmoker D rug/Alcohol: A KIM-C (Standard) D id you have a drink containing alcohol in the past year? Y es H ow often did you have six or more drinks on one occasion in the past year? 4 or more times a week (4 points) H ow many drinks did you have on a typical day when you were drinking in the past year? 5 or 6 drinks (2 points) H ow often did you have a drink containing alcohol in the past year? D aily or almost daily (4 points) P oints 1 0 I nterpretation P ositive * Medications: T akingAllopurinol 300 MG Tablet 1 tablet Orally Once a day Gabapentin 400 MG Capsule 1 capsule Orally tid hydroCHLOROthiazide 25 MG Tablet 1 tablet in the morning Orally Once a day Ibuprofen 800 MG Tablet 1 tablet with food or milk as needed Orally QID , Notes to Pharmacist: PRNMetoprolol Tartrate 100 MG Tablet 1 tablet with food Orally 1 am and 2 evening Ramipril 10 MG Capsule 2 capsule Orally Once a day Medication List reviewed and reconciled with the patientTaking Allopurinol 300 MG Tablet 1 tablet Orally Once a day Taking Gabapentin 400 MG Capsule 1 capsule Orally tid Taking hydroCHLOROthiazide 25 MG Tablet 1 tablet in the morning Orally Once a day Taking Ibuprofen 800 MG Tablet 1 tablet with food or milk as needed Orally QID , Notes to Pharmacist: PRNTaking Metoprolol Tartrate 100 MG Tablet 1 tablet with food Orally 1 am and 2 evening Taking Ramipril 10 MG Capsule 2 capsule Orally Once a day Medication List reviewed and reconciled with the patient * Allergies: S ulfa Antibiotics: eliud sore - Allergyno[Allergies Verified] Objective: * Vitals: W t:209lbs, Ht: 68 in, BP:130/80mm Hg, BMI:31.77Index, Ht-cm: 172.72 cm, Wt-k.8 kg. * Examination: P hysical Exam: GENERAL: w ell developed, well nourished, in no acute distress. HEAD: n ormocephalic/atraumatic. EYES: p upils equal, round and reactive to light, conjunctivae and sclerae normal. EARS: n o deformity or lesion of external ear, canals and TM appear normal bilaterally, TM's intact, not inflamed with normal light reflex, hearing grossly normal to conversational speech. NOSE: n o deformity, discharge, inflammation, or lesions.? MOUTH: m ucous membranes moist, normal oropharynx and posterior pharynx without lesions or exudates, tongue normal, dentition normal. NECK: n evie supple, no masses or palpable cervical nodes, trachea midline, thyroid without nodules, masses, tenderness, or enlargement. CHEST: n o chest wall deformity, no chest wall tenderness.? LUNGS: n ormal respiratory effort and clear to auscultation, no wheezes, rales, or rhonchi, good air exchange. CARDIO: r egular rate and rhythm, normal S1 and S2, nor murmur, rub, or gallop. PULSES: n ormal capillary refill. ABDOMEN: s oft, non-distended, non-tender, no masses. MUSCULOSKELETAL: n o deformity or scoliosis noted, normal range of motion, joints normal, no erythema, edema, effusion, or ecchymosis. EXTREMITY: n o clubbing, cyanosis, edema, or deformity with normal ROM in both upper and lower bilateral extremities. NEUROLOGIC: g rossly normal. SKIN: n o rashes, ulcerations, or suspicious lesions. LYMPH NODES: n o cervical adenopathy, nodes normal. MENTAL STATUS: a lert and oriented x3, normal mood and affect. Assessment: * Assessment: 1. W ell adult - Z00.00 (Primary) Plan: * Treatment: * Therapeutic Injections: Triamcinolone 40 mg/ml : 120 mg (Route: Intramuscular) given by JACQUE Bernabe on right deltoid (Well adult) Ketorolac Tromethamine : 60 mg (Route: Intramuscular) given by JACQUE Bernabe on left deltoid (Well adult) * Procedure Codes: 9 6372 THERAP.INJ. OF MED. INTRAMUSCULAR OR [id number] TMC ACET,PER 10MG., Units: 12.00 J1885 TORADOL, PER 15 MG, Units: 4.00 , Modifiers: JZ * Preventive Medicine: Screenings/Counseling: B NM ACTION PLAN Above Normal BMI Follow-up D ietary management education, guidance, and counseling T OBACCO ACTION PLAN Patient counselled on the dangers of tobacco use and urged to quit. . * * Sign off status: Completed Visit Status: C HK (Check Out) true * Provider: Luis Armando Marroquin ([facility])MD Date: 0 03/28/2025 Generated for Printi ng/Faxing/eTransmitting on: 0 04/02/2025 11:39 AM EDT History and Physical Notes * HPI (History of Present Illness) Category Sub-Category Detail Notes Category Not es Depression Screening PHQ-2 (2015 Edition) Little interest or pleasure in doing things?: Not at all HTN - stabel on meds needs labs R latteral elbow - tenderns Feeling down, depressed, or hopeless?: N ot at all Total Score: 0 Examination Category Sub-Category Detail Notes Category Not es Physical Exam GENERAL: well developed, well nourished, in no acute distress HEAD: normocephalic/atraum atic EYES: pupils equal, round and reactive to light, conjunctivae and sclerae normal EARS: no deformity or lesi on of external ear, canals and TM appear normal bilaterally, TM's intact, not inflamed with normal light reflex, hearing grossly normal to conversational speech NOSE: no deformity, discha rge, inflammation, or lesions MOUTH: mucous membranes babat[address] st, normal oropharynx and posterior pharynx without lesions or exudates, tongue normal, dentition normal NECK: neck supple, no mass es or palpable cervical nodes, trachea midline, thyroid without nodules, masses, tenderness, or enlargement CHEST: no chest wall deform ity, no chest wall tenderness LUNGS: normal respiratory e ffort and clear to auscultation, no wheezes, rales, or rhonchi, good air exchange CARDIO: regular rate and rhy thm, normal S1 and S2, nor murmur, rub, or gallop PULSES: normal capillary ref ill ABDOMEN: soft, non-distended, non-tender, no masses RECTAL: MUSCULOSKELETAL: no deformity or scol iosis noted, normal range of motion, joints normal, no erythema, edema, effusion, or ecchymosis EXTREMITY: no clubbing, cyanosi s, edema, or deformity with normal ROM in both upper and lower bilateral extremities NEUROLOGIC: grossly normal SKIN: no rashes, ulceratio ns, or suspicious lesions LYMPH NODES: no cervical adenopat hy, nodes normal MENTAL STATUS: alert and oriented x 3, normal mood and affect
--- OUTSIDE RECORDS SUMMARY | 2025-04-02 11:38 | XMS_ITS | CCD ---
Author Organization [facility] CliniSyri Care Team Providers Care [employer] Name Role Phone ROGELIO ., DR GILLIS Admitting Unavailable HOY ., [...] Containting Drugs) Drug allergy (disorder) 5 [facility] Repository (1 source) Sulfonamides (Antibiotic) Drug allergy (disorder) 5 [facility] (1 source) Iodinated contrast media (substance) Drug allergy Unknown [facility] Other (1 source) Substance with sulfonamide structure and antibacterial mechanism of action (substance) Drug allergy Unknown [facility] Other (1 source) Contrast Allergy PreMed Pack Drug allergy Unknown [facility] Other Medications Current Medications Medication Drug Class(es) [...] by: MARIMAR PRICE Date: 2022-12-06 15:40 Normal [facility] MRI BRAIN WO W CONon 022 MRI [...] by: DHIRAJ HIGGINS Date: 2022-07-16 09:10 Normal [facility] MRI CSPINE W CONon 2 MRI CSPINE [...] DHIRAJ HIGGINS Date: 2022-07-16 08:23 Normal [facility] MRI CSPINE WO CONon 06-27-20 [facility] MRI CSPINE WO CON [...] DHIRAJ HIGGINS Date: 2022-06-27 18:59 Normal [facility] INSULINon 06-20-2022 Insulin 50.7 uIU/mL Critically high 2.6-24.9 [facility] Comment on above: Performed By: #### I NSULIN ####[facility] [address] [place] [address]DrColby Marsh CBC AUTO DIFFon 06-19-2022 BASO # 0.1 103/ul Normal 0.0-0.1 [facility] Comment on above: Performed By: #### C BC ####[facility] [address] [place] [address]DrColby Marsh Basophils/100 WBC (Bld) 0.9 % Normal 0.2-2.0 [facility] Comment on above: Performed By: #### C BC ####[facility] [address] [place], [place] [address]Dr. Yaron Marsh EO # 0.2 103/ul Normal 0.0-0.7 [facility] Comment on above: Performed By: #### C BC ####[facility] [address] [place], [place] [address]Dr. Yaron Marsh Eosinophils/100 WBC (Bld) 3.4 % Normal 0.9-7.0 [facility] Comment on above: Performed By: #### C BC ####[facility] [address] [place], [place] [address]Dr. Yaron Marsh Erythrocyte distribution width (RBC) [Ratio] 11.6 % Normal 11.0-15.0 [facility] Comment on above: Performed By: #### C BC ####[facility] [address] [place], [place] [address]Dr. Yaron Marsh Hematocrit (Bld) [Volume fraction] 48.2 % Normal 42.0-54.0 [facility] Comment on above: Performed By: #### C BC ####[facility] [address] [place], [place] [address]Dr. Yaron Marsh Hemoglobin (Bld) [Mass/Vol] 16.9 g/dL Normal 14.0-18.0 [facility] Comment on above: Performed By: #### C BC ####[facility] [address] [place], [place] [address]Dr. Yaron Marsh IG # 0.02 10e3/ul Normal 0.00-0.03 [facility] Comment on above: Performed By: #### C BC ####[facility] [address] [place], [place] [address]Dr. Yaron Marsh IG % 0.3 % Normal 0.0-0.5 [facility] Comment on above: Performed By: #### C BC ####[facility] [address] [place], [place] [address]Dr. Yaron Marsh LYMPH # 2.0 103/ul Normal 1.2-3.8 [facility] Comment on above: Performed By: #### C BC ####[facility] [address] [place] [address]Dr. Yaron Marsh Lymphocytes/100 WBC (Bld) 31.4 % Normal 20.5-60.0 [facility] Comment on above: Performed By: #### C BC ####[facility] [address] [place] [address]Dr. Yaron Marsh MANUAL DIFF REQ NO Normal [facility] Comment on above: Performed By: #### C BC ####[facility] [address] [place] [address]Dr. Yaron Marsh MCH (RBC) [Entitic mass] 35.1 pg Critically high 25.9-34.0 [facility] Comment on above: Performed By: #### C BC ####[facility] [address] [place], [place] [address]Dr. Yaron Marsh MCHC (RBC) [Mass/Vol] 35.1 g/dL Normal 29.9-35.2 [facility] Comment on above: Performed By: #### C BC ####[facility] [address] [place], [place] [address]Dr. Yaron Marsh MCV (RBC) [Entitic vol] 100.2 fL Critically high 80.0-94.0 [facility] Comment on above: Performed By: #### C BC ####[facility] [address] [place], [place] [address]Dr. Yaron Marsh MONO # 0.5 103/ul Normal 0.3-0.8 [facility] Comment on above: Performed By: #### C BC ####[facility] [address] [place], [place] [address]Dr. Yaron Marsh Monocytes/100 WBC (Bld) 7.1 % Normal 1.7-12.0 [facility] Comment on above: Performed By: #### C BC ####[facility] [address] [place], [place] [address]Dr. Yaron Marsh NEUT # 3.7 103/ul Normal 1.4-6.5 [facility] Comment on above: Performed By: #### C BC ####[facility] [address] [place] [address]Dr. Yaron Maximo Neutrophils/100 WBC (Bld) 56.9 % Normal 43.0-75.0 [facility] Comment on above: Performed By: #### C BC ####[facility] [address] [place] [address]Dr. Yaron Maximo Platelet mean volume (Bld) [Entitic vol] 9.9 fL Normal 9.5-13.5 [facility] Comment on above: Performed By: #### C BC ####[facility] [address] [place] [address]DrColby Marsh PLT 177 103/ul Normal 150-450 [facility] Comment on above: Performed By: #### C BC ####[facility] [address] [place] [address]Dr. Yaron Marsh RBC 4.81 106/ul Normal 4.70-6.10 [facility] Comment on above: Performed By: #### C BC ####[facility] [address] [place] [address]DrColby Yaron Maximo WBC 6.5 103/ul Normal 4.0-11.0 [facility] Comment on above: Performed By: #### C BC ####[facility] [address] [place] [address]DrColby Marsh FREE THYROXINE INDEX T7on FTI 2.05 Normal 1.30-4.50 [facility] Comment on above: Performed By: #### L IPID, T7, CMP, TSH #### [facility] [address] [address] [address] Yaron Marsh T3U 33.0 % Normal 33.0-40.0 [facility] Comment on above: Performed By: #### L IPID, T7, CMP, TSH #### [facility] [address] [address] [address] Yaron Marsh T4 [Mass/Vol] 6.20 ug/dL Normal 4.50-12.10 [facility] Comment on above: Performed By: #### L IPID, T7, CMP, TSH #### [facility] [address] [address] [address] Yaron Marsh GLYCOHEMOGLOBIN A1Con 2021 ADA RECOMMENDATION SEE BELOW Normal [facility] Comment on above: Result Comment: ADA RECOMMENDED LIMIT 4.0 - 6.0 ADA THERAPEUTIC TARGET < 7.0 ACTION SUGGESTED > 7.0 Performed By: #### A 1C #### [facility] [address] [address] [address] Yaron Marsh Glucose [Mass/Vol] 97 mg/dL Normal [facility] Comment on above: Performed By: #### A 1C #### [facility] [address] [address] [address] Yaron Marsh HbA1c (Bld) [Mass fraction] 5.0 % Normal 4.5-6.2 [facility] Comment on above: Performed By: #### A 1C #### [facility] [address] [address] [address] Yaron Marsh LIPID PROFILEon 06-19-2022 CHOL-HDL RATIO NORM SEE BELOW Normal [facility] Comment on above: Result Comment: 3.3 - 4.4 LOW RISK 4.4 - 7.1 AVERAGE RISK 7.1 - 11.0 MODERATE RISK >11.0 HIGH RISK Performed By: #### L IPID, T7, CMP, TSH #### [facility] [address] [address] [address] Yaron Marsh Cholesterol [Mass/Vol] 196 mg/dL Normal <=200 [facility] Comment on above: Performed By: #### L IPID, T7, CMP, TSH #### [facility] [address] [address] [address] Yaron Marsh Cholesterol in HDL [Mass/Vol] 57 mg/dL Normal 40-60 [facility] Comment on above: Performed By: #### L IPID, T7, CMP, TSH #### [facility] [address] [address] [address] Yaron Marsh Cholesterol in LDL [Mass/Vol] 122.6 mg/dL Normal [facility] Comment on above: Performed By: #### L IPID, T7, CMP, TSH #### [facility] [address] [address] [address] Yaron Marsh Cholesterol.total/Ch olesterol in HDL [Mass ratio] 3.4 {ratio} Normal [facility] Comment on above: Performed By: #### L IPID, T7, CMP, TSH #### [facility] [address] [address] [address] Yaron Marsh HDL NORMAL > or = 60 mg/dl - LO W CARDIOVASCULAR RISK <40 mg/dl - HIGH CARDIOVASCULAR RISK Normal [facility] Comment on above: Performed By: #### L IPID, T7, CMP, TSH #### [facility] [address] [address] [address] Yaron Marsh LDL CALC NORMAL SEE BELOW Normal [facility] Comment on above: Result Comment: <100 mg/dl OPTIMAL 100 - 129 mg/dl NEAR OR ABOVE OPTIMAL 130 - 159 mg/dl BORDERLINE HIGH 160 - 189 mg/dl HIGH >190 mg/dl VERY HIGH Performed By: #### L IPID, T7, CMP, TSH #### [facility] [address] [address] [address] Yaron Marsh Triglyceride [Mass/Vol] 82 mg/dL Normal <=150 [facility] Comment on above: Performed By: #### L IPID, T7, CMP, TSH #### [facility] [address] [address] [address] Yaron Marsh VLDL CALC 16.4 mg/dL Normal [facility] Comment on above: Performed By: #### L IPID, T7, CMP, TSH #### [facility] [address] [address] [address] Yaron Marsh PROF 14(COMP METB)on 022 Albumin [Mass/Vol] 3.8 g/dL Normal 3.4-5.0 [facility] Comment on above: Performed By: #### L IPID, T7, CMP, TSH #### [facility] [address] [address] [address] Yaron Marsh Albumin/Globulin [Mass ratio] 1.2 {ratio} Normal [facility] Comment on above: Performed By: #### L IPID, T7, CMP, TSH #### [facility] [address] [place] [address] Dr. Yaron Marsh ALP [Catalytic activity/Vol] 94 U/L Normal 46-116 [facility] Comment on above: Performed By: #### L IPID, T7, CMP, TSH #### [facility] [address] [place] [address] Dr. Yaron Marsh ALT [Catalytic activity/Vol] 124 U/L Critically high 16-63 [facility] Comment on above: Performed By: #### L IPID, T7, CMP, TSH #### [facility] [address] [place] [address] Dr. Yaron Marsh Anion gap [Moles/Vol] 8.6 mmol/L Normal [facility] Comment on above: Performed By: #### L IPID, T7, CMP, TSH #### [facility] [address] [place] [address] Dr. Yaron Marsh AST [Catalytic activity/Vol] 79 U/L Critically high 15-37 [facility] Comment on above: Performed By: #### L IPID, T7, CMP, TSH #### [facility] [address] [address] [address] Yaron Marsh Bilirubin [Mass/Vol] 0.6 mg/dL Normal 0.2-1.0 [facility] Comment on above: Performed By: #### L IPID, T7, CMP, TSH #### [facility] [address] [place] [address] Dr. Yaron Marsh Calcium [Mass/Vol] 9.3 mg/dL Normal 8.5-10.1 [facility] Comment on above: Performed By: #### L IPID, T7, CMP, TSH #### [facility] [address] [place] [address] Dr. Yaron Marsh Chloride [Moles/Vol] 106 mmol/L Normal 98-107 [facility] Comment on above: Performed By: #### L IPID, T7, CMP, TSH #### [facility] [address] [address] [address] Yaron Marsh CO2 [Moles/Vol] 29.3 mmol/L Normal 21.0-32.0 [facility] Comment on above: Performed By: #### L IPID, T7, CMP, TSH #### [facility] [address] [address] [address] Yaron Marsh Creatinine [Mass/Vol] 0.69 mg/dL Critically low 0.70-1.30 [facility] Comment on above: Performed By: #### L IPID, T7, CMP, TSH #### [facility] [address] [address] [address] Yaron Marsh EGFR-AF MONGOLIAN >60 Normal >=60 [facility] Comment on above: Performed By: #### L IPID, T7, CMP, TSH #### [facility] [address] [address] [address] Yaron Marsh EGFR-NON AF MONGOLIAN >60 Normal >=60 [facility] Comment on above: Performed By: #### L IPID, T7, CMP, TSH #### [facility] [address] [address] [address] Yaron Marsh Globulin (S) [Mass/Vol] 3.3 g/dL Normal [facility] Comment on above: Performed By: #### L IPID, T7, CMP, TSH #### [facility] [address] [address] [address] Yaron Marsh Glucose [Mass/Vol] 104 mg/dL Normal 74-106 [facility] Comment on above: Performed By: #### L IPID, T7, CMP, TSH #### [facility] [address] [address] [address] Yaron Marsh Potassium [Moles/Vol] 4.9 mmol/L Normal 3.5-5.1 [facility] Comment on above: Performed By: #### L IPID, T7, CMP, TSH #### [facility] [address] [place] [address] Dr. Yaron Marsh Protein [Mass/Vol] 7.1 g/dL Normal 6.4-8.2 [facility] Comment on above: Performed By: #### L IPID, T7, CMP, TSH #### [facility] [address] [place] [address] Dr. Yaron Marsh Sodium [Moles/Vol] 139 mmol/L Normal 136-145 [facility] Comment on above: Performed By: #### L IPID, T7, CMP, TSH #### [facility] [address] [place] [address] Dr. Yaron Marsh Urea nitrogen [Mass/Vol] 18.0 mg/dL Normal 7.0-18.0 [facility] Comment on above: Performed By: #### L IPID, T7, CMP, TSH #### [facility] [address] [place] [address] Dr. Yaron Marsh Urea nitrogen/Creatinine [Mass ratio] 26.1 mg/mg Normal [facility] Comment on above: Performed By: #### L IPID, T7, CMP, TSH #### [facility] [address] [place] [address] Dr. Yaron Marsh [facility] 06-19-2022 TSH 3.272 uIU/mL Normal 0.358-3.740 [facility] Comment on above: Performed By: #### L IPID, T7, CMP, TSH #### [facility] [address] [place] [address] Dr. Yaron Marsh Vital Signs Date Time Vital Sign Value Performing Clinician Cesilia licona 03-31-2023 13:00-0400 Body height Didi Blades Other [facility] Other 03-31-2023 13:00-0400 Body mass index (BMI) [Ratio] 32.1 kg/m2 Didi Blades Other [facility] Other 03-31-2023 13:00-0400 Body weight 92.99 kg Didi Blades Other [facility] Other 03-31-2023 13:00-0400 Diastolic blood pressure 90 mm[Hg] Didi Blades Other [facility] Other 03-31-2023 13:00-0400 Systolic blood pressure 138 mm[Hg] Didi Blades Other [facility] Other Encounters Encounter Date Encounter Type Care Provider Facility Start: 03-31-2023 End: 03-31-2023 ambulatory Didi Blades Other [facility] Other Start: 03-31-2023 Office outpatient ne w 45 minutes Didi Blades [facility] Start: 12-06-2022 End: 12-07-2022 ambulatory ELIA BISHOP Facility:[facility] Start: 09-10-2022 End: 10-18-[address] FRANCIE CAMPBELL Facility:[facility] Start: 07-15-2022 End: 07-16-[address] CARLIN MERCADO . Facility[facility] Start: 06-27-2022 End: 06-28-[address] CARLIN MERCADO . Facility:[facility] Start: 06-23-2022 Encounter for genera l adult medical examination without abnormal findings DR CARLIN MERCADO . [facility] Start: 06-19-2022 End: 06-20-[address] CARLIN MERCADO . Facility:[facility] Start: 06-19-2022 End: 06-20-2022 Encounter for general adult medical examination without abnormal findings DR CARLIN MERCADO . Facility:[facility] Procedures Date Procedure Procedure Detail Performing Clinician Start: 06-19-[address] JOHN MERCADO . Comment on above: Performed By: #### [facility] #### [facility] [address] [place] [address] Dr. Yaron Marsh Payers Date Payer Category Payer Unknown [id number] 2.16.84 [id number] 1967 Unknown [id number] 2.16.84 [id number] 1967 Unknown [id number] 2.16.84 [id number] 1967 Unknown [id number] 2.16.84 [id number] 1967 Unknown [id number] 2.16.84 [id number] 1959 Unknown [id number] 1959 Unknown [id number] Social History Date Type Detail Facility Sex Assigned At [facility] Other Evaluation note Note Date & Type Note Facility Evaluation note No Information [facility] Other History general Narrative - Reported Note Date & Type Note Facility History general Narrative - Reported Type Medical History Gout Medical History high blood pressure Surgical History hernia repair Surgical History elbow surgery Hospitalization History see above surg. hx. [facility] Other Summary Purpose Family History No Family [...] BE BASED ON THE PRIMARY CLINICAL RECORDS. [facility]. provides no warranty or guarantee of the accuracy or completeness of information in this document.
--- OUTSIDE RECORDS SUMMARY | 2025-04-02 11:40 | XMS_ITS | Patient Health Record ---
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 Lila diaz Diagnosis 1 Cervical myelopathy (G95.9) Referral Organization [facility] Referring Provider First Name Inangelicag Referring Provider Last Name xxArnel g Referring Provider Speciality Orthopedic Surgery Referred Organization [facility] Referred Address [address] [place] [phone], General Notes Chhaya Machado 04/02 04:29:09 PM >Daniel Amanda 04/22/2024 09:27:35 AM >Called and lmovm to schedule./Daniel gonzalez Amanda 04/22/2024 03:56:58 PM > needed latest 9.5.24 scheduled.//ar Referral Priority Routine Reason Cervical SHARYN Diagnosis 1 Cervical radiculitis (M54.12) Referral Organization [facility] Referring Provider First Name Abram Referring Provider Last Name Janette Referring Provider Speciality Pain Manag ement Referred Organization [facility] Referred Provider Abram Savage Referred Address [address] [place] [address],[place], [place],[address],[place] Referred Provider Specialty Anesthesiolo gy Procedure 1 NJX INTERLAMINAR CRV /THRC ([id number]) General Notes Sherri George 05/06/2024 04:17:44 PM > wating on note and then submitting on UMR for approval, Sherri George 05/07/2024 08:00:41 AM > submitted on UMR for approval - pending, Sherri George 05/11/2024 10:56:39 AM > checked status online - [facility] - ref#[id number] Referral Priority Routine Medications Medication SIG (Take, Route, Frequency, Duration) Notes Start Date End Date Status gabapentin 400 mg 1 cap(s) orally 3 times a day for 30 days 09/21/2024 Active allopurinol 300 mg 1 tab(s) orally once a day Active hydroCHLOROthiazide 25 mg 1 tab(s) orall y once a day Active Neurontin 300 mg 1 cap(s) orally 3 times a day for 30 days 06/15/2024 Not-Taking ramipril 10 mg 2 cap(s) orally once a day Active IBUPROFEN 800 mg 1 tab(s) orally As needed Active Metoprolol Tartrate 100 mg 1 tab(s) oral ly 2 times a day Active Social History Tobacco Use: Social History Observation Description Date Details (start date - stop date) Unknown AUDIT-C (Standard) Question Answer Notes Did you have a drink containing alcohol in the p ast year? 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 confirmed Problem 761981733 Facet arthropath y, cervical (M47.812) Active confirmed Vital Signs Blood pressure diastolic 110 mm Hg 09/21/2024 Height 67 in 12/21/2024 Blood pressure systolic 178 mm Hg 09/21/2024 Weight 210 lbs 12/21/2024 BMI 32.89 12/21/2024 Procedures Procedure Date Ordered Date Performed Result Body Sit e CERVICAL SHARYN 05/06/2024 N/A Encounters Encounter Location Date Provider Diagnosis [facility] [address] [place] [phone] 04/20/2024 [facility] Degeneration of C5-C6 intervertebral disc M50.322 ; Cervical spinal stenosis M48.02 ; Other cervical disc degeneration at C6-C7 level M50.323 ; Facet arthropathy, cervical M47.812 and Cervical myelopathy G95.9 [facility] [address] [place] [phone] 05/06/2024 Abram Bahn Facet arthropathy, cervical M47.812 ; Cervical radiculitis M54.12 ; Cervical myelopathy G95.9 and Degeneration of C5-C6 intervertebral disc M50.322 [facility] [address] [place] [phone] 05/20/2024 Abram Bahn Cervical radiculitis M54.12 [facility] [address] [place] [phone] 06/15/2024 [facility] Cervical radiculitis M54.12 ; Cervical spinal stenosis M48.02 and Cervical myelopathy G95.9 [facility] [address] [place] [phone] 09/21/2024 Abram Bahn Cervical radiculitis M54.12 ; Cervical spinal stenosis M48.02 ; Degeneration of C5-C6 intervertebral disc M50.322 and Other cervical disc degeneration at C6-C7 level M50.323 [facility] [address] [place] [phone] 12/21/2024 Abram Bahn Cervical radiculitis M54.12 ; Cervical spinal stenosis M48.02 ; Other cervical disc degeneration at C6-C7 level M50.323 ; Degeneration of C5-C6 intervertebral disc M50.322 and Cervical myelopathy G95.9 [facility] [address] [place] [address] 02/14/2025 Abram Savage Cervical radiculitis M54.12 Assessments Encounter Date Diagnosis (ICD Code) Assessment Notes Treatment Notes Treatment Clinical Notes Section Notes 04/20/2024 Cervical spinal stenosis (ICD-10 - M48.02) 1, cervical myelopathy 2. DDD C5-C7 3. FA C5-C7 4. C4-C7 stenosis 5. carpal tunnel syndrome At this time, we discussed MRI results with the patient. The patient would like to be referred to Dr. Savage to discuss SHARYN C7-T1. The patient will be PRN with our clinic at this time. 04/20/2024 Degeneration of C5-C6 intervertebral disc (ICD-10 - M50.322) 1, cervical myelopathy 2. DDD C5-C7 3. FA C5-C7 4. C4-C7 stenosis 5. carpal tunnel syndrome At this time, we discussed MRI results with the patient. The patient would like to be referred to Dr. Savage to discuss SHARYN C7-T1. The patient will be PRN with our clinic at this time. 05/06/2024 Facet arthropathy, cervical (ICD-10 - M47.812) 05/20/2024 Cervical radiculitis (ICD-10 - M54.12) 06/15/2024 Cervical radiculitis (ICD-10 - M54.12) 05/06/2024 Cervical radiculitis (ICD-10 - M54.12) 09/21/2024 Cervical radiculitis (ICD-10 - M54.12) 12/21/2024 Cervical radiculitis (ICD-10 - M54.12) 02/14/2025 Cervical radiculitis (ICD-10 - M54.12) 12/21/2024 Cervical spinal stenosis (ICD-10 - M48.02) 04/20/2024 Other cervical disc degeneration at C6-C7 level (ICD-10 - M50.323) 1, cervical myelopathy 2. DDD C5-C7 3. FA C5-C7 4. C4-C7 stenosis 5. carpal tunnel syndrome At this time, we discussed MRI results with the patient. The patient would like to be referred to Dr. Savage to discuss SHARYN C7-T1. The patient will be PRN with our clinic at this time. 09/21/2024 Cervical spinal stenosis (ICD-10 - M48.02) 05/06/2024 Cervical myelopathy (ICD-10 - G95.9) 06/15/2024 Cervical spinal stenosis (ICD-10 - M48.02) 06/15/2024 Cervical myelopathy (ICD-10 - G95.9) 04/20/2024 Facet arthropathy, cervical (ICD-10 - M47.812) 1, cervical myelopathy 2. DDD C5-C7 3. FA C5-C7 4. C4-C7 stenosis 5. carpal tunnel syndrome At this time, we discussed MRI results with the patient. The patient would like to be referred to Dr. Savage to discuss SHARYN C7-T1. The patient will be PRN with our clinic at this time. 05/06/2024 Degeneration of C5-C6 intervertebral disc (ICD-10 - M50.322) 09/21/2024 Degeneration of C5-C6 intervertebral disc (ICD-10 - M50.322) 12/21/2024 Other cervical disc degeneration at C6-C7 level (ICD-10 - M50.323) 12/21/2024 Degeneration of C5-C6 intervertebral disc (ICD-10 - M50.322) 09/21/2024 Other cervical disc degeneration at C6-C7 level (ICD-10 - M50.323) 04/20/2024 Cervical myelopathy (ICD-10 - G95.9) 1, cervical myelopathy 2. DDD C5-C7 3. FA C5-C7 4. C4-C7 stenosis 5. carpal tunnel syndrome At this time, we discussed MRI results with the patient. The patient would like to be referred to Dr. Savage to discuss SHARYN C7-T1. The patient will be PRN with our clinic at this time. 12/21/2024 Cervical myelopathy (ICD-10 - G95.9) 05/06/2024 Other After thorough history, physical examination, and review of patient's previous treatments and imaging results, a description of the patient's painful diagnoses was performed. This was discussed with patient today with use of diagrams and plastic models. Risks and benefits associated with treatments were discussed and the following plan was developed with the patient: 1. Interventional: The patient will be scheduled for cervical epidural steroid injection under fluoroscopic guidance. He does have cervical central canal stenosis and foraminal stenosis present. This could explain many of his symptoms isolated to the left-hand side of the cervical region. 2. Medications: Medications may be helpful in the future. At this time, we will try interventional options first. 3. Activity: The patient is completed formal physical therapy. Additional therapy could be considered in the future if necessary. 4. Follow up: The patient will follow-up after his upcoming cervical SHARYN for further recommendations. Today we discussed a multi-focal approach to the management of the patient's pain symptoms including, but not limited to, behavioral health practices, activity modifications, physical therapy exercises and home exercise programming along with medication management both prescriptive and [id number]. I did spend 30 minutes with the patient today discussing their chronic pain condition and chart review. This will suffice as an H&P for any interventional procedure. import current medications 06/15/2024 Other After thorough history, physical examination, and review of patient's previous treatments and imaging results, a description of the patient's painful diagnoses was performed. This was discussed with patient today with use of diagrams and plastic models. Risks and benefits associated with treatments were discussed and the following plan was developed with the patient 1. Interventional No interventions were scheduled at today's visit. Patient has attempted cervical SHARYN without any significant long-term relief of symptoms. We did discuss that he may return back to Dr. Zaragoza to discuss surgical intervention as an option however the patient states he does not want a proceed with surgery at this time. If it is recommended. No further injections would be recommended at this time however we could consider medial branch blocks in the future for axial cervical pain, however I do not feel that this is appropriate at this time. 2. Medications Patient will be started on gabapentin 300 mg and titrate up to 3 times daily dosing. He has attempted gabapentin, 100 mg 3 times daily, last prescribed over 14 months ago. Patient does not recall how he tolerated this medication nor if he had any side effects. He should continue with his current medication regimen as prescribed by the providers. 3. Activity Patient will continue with physical activity as tolerated and continue performing at-home exercises as previously instructed. 4. Follow up The patient will be scheduled to follow-up in 3 months for further evaluation and recommendations. Today we discussed a multi-focal approach to the management of the patient's pain symptoms including, but not limited to, behavioral health practices, activity modifications, physical therapy exercises and home exercise programming along with medication management both prescriptive and [id number]. I did spend 30 minutes with the patient today discussing their chronic pain condition. This will serve as a History & Physical for any recommended procedures in the future if scheduled within 30 days of today's visit. This note was generated using a speech recognition program and may contain errors due to phonetic interpretation. 09/21/2024 Other After thorough history, physical examination, and review of patient's previous treatments and imaging results, a description of the patient's painful diagnoses was performed. This was discussed with patient today with use of diagrams and plastic models. Risks and benefits associated with treatments were discussed and the following plan was developed with the patient: 1. Interventional: The patient underwent cervical SHARYN in the past with minimal if any results. No other interventions are recommended at today's visit. 2. Medications: The patient will have his GABAPENTIN increased up to 400 mg, up to 3 times daily. He usually takes it just twice daily. He has tolerated 300 mg and noticed some modest improvement so far. Further increase to 600 mg in the future may be appropriate. 3. Activity: The patient was advised to continue with home exercise program for his neck. We did suggest referral back to Dr. Zaragoza for surgical recommendations and further discussion but patient declined today. 4. Follow up: The patient will follow-up in about 3 months or sooner if needed. Today we discussed a multi-focal approach to the management of the patient's pain symptoms including, but not limited to, behavioral health practices, activity modifications, physical therapy exercises and home exercise programming along with medication management both prescriptive and [id number]-[id number]. I did spend 30 minutes with the patient today discussing their chronic pain condition and chart review. This will suffice as an H&P for any interventional procedure. import current medications 12/21/2024 Other After thorough history, physical examination, and review of patient's previous treatments and imaging results, a description of the patient's painful diagnoses was performed. This was discussed with patient today with use of diagrams and plastic models. Risks and benefits associated with treatments were discussed and the following plan was developed with the patient: 1. Interventional: The patient underwent cervical SHARYN in the past and did not see a whole lot of improvement. I would recommend no additional interventions for now as he does notice some modest improvements with gabapentin. 2. Medications: The patient will continue GABAPENTIN 400 mg, up to 3 times daily. He currently has 1 refill left. We can renew this in the future if needed. We did discuss 600 mg but he would like to stay with his current dosage rather than go higher. 3. Activity: The patient understands importance of continue with home exercise program. We also discussed referral back to Dr. Zaragoza for surgical recommendations and further discussion about what might improve with surgery but he declined today. 4. Follow up: The patient will follow-up in 6 months or sooner if needed. Today we discussed a multi-focal approach to the management of the patient's pain symptoms including, but not limited to, behavioral health practices, activity modifications, physical therapy exercises and home exercise programming along with medication management both prescriptive and [id number]. I did spend 30 minutes with the patient today discussing their chronic pain condition and chart review. This will suffice as an H&P for any interventional procedure. import current medications Plan Of Treatment Pending Test Test Name Order Date Cervical spine 2 v - [id number] 04/20/2024 Next Appt Details Provider Name:Abram Andino Janette, 1 03:45:00 PM, [address] [place] [address], [phone], Insurance Providers Payer Name Payer Address Payer Phone Subscriber Number Group Number Insured Name Patient Relationship to Insured Coverage Start Date Coverage End Date [employer] [address] [place] [address] [id number] NOEL LOBO Self - patient is the insured Medical (General) History Medical History History ICD Code Bilateral Carpal Tunnel Syndrome Hypertension Gout Surgical History Surgery Date(Month/Year) Right elbow surgery Groin surgery
[2025-04-02 12:03] LABS: Hematocrit 46.5 % (42.0-54.0); Hemoglobin 16.6 g/dL (14.0-18.0); Immature Granulocytes Abs Auto 0.08 10^3/uL (0.00-0.03); Immature Granulocytes Pct Auto 0.8 % (0.0-0.5); Lymphocytes Absolute Auto 2.1 10^3/uL (1.2-3.8); Mean Corpuscular HGB Conc 35.7 g/dL (29.9-35.2); Mean Corpuscular Hemoglobin 35.9 pg (25.9-34.0); Mean Corpuscular Volume 100.6 fL (80.0-94.0); Platelet Count 202 10^3/uL (150-450); Red Blood Count 4.62 10^6/uL (4.70-6.10); White Blood Count 9.6 10^3/uL (4.0-11.0)
[2025-04-02 12:59] LABS: Alanine Aminotransferase 115 U/L (16-63); Albumin Globulin Ratio 1.1; Albumin Level 3.5 g/dL (3.4-5.0); Alkaline Phosphatase 112 U/L (46-116); Anion Gap 8.3; Aspartate Amino Transferase 38 U/L (15-37); Blood Urea Nitrogen 27.0 mg/dL (7.0-18.0); Calcium 9.0 mg/dL (8.5-10.1); Carbon Dioxide 29.1 mmol/L (21.0-32.0); Chloride 108 mmol/L (98-107); Cholesterol 172 mg/dL (<=200); Estimated GFR (African America >60 (>=60 mL/min/1.73m^2); Estimated GFR (Non-African Ame >60 (>=60 mL/min/1.73m^2); Free T3 1.78 pg/mL (2.18-3.98); Globulin 3.2 g/dL; Glucose 114 mg/dL (74-106); HDL Cholesterol 75 mg/dL (40-60); Potassium 4.4 mmol/L (3.5-5.1); Sodium 141 mmol/L (136-145); Thyroid Stimulating Hormone 1.524 uIU/mL (0.358-3.740); Total Protein 6.7 g/dL (6.4-8.2); Triglycerides 52 mg/dL (<=150); Uric Acid 6.4 mg/dL (3.5-7.2); VLDL CHOLESTEROL 10.4 mg/dL
== END 2025-04-02 11:36 | disposition home or self-care (01) ==
LOC: LAB 11:36
PROVIDERS: PCP Family Medicine; Visit Provider Family Medicine
DX: Z00.00 Encounter for general adult medical examination without abnormal findings (principal); Z12.5 Encounter for screening for malignant neoplasm of prostate
CPT/HCPCS: 36415; 80053; 80061; 83036; 83525; 84436; 84443; 84481; 84550; 85025; G0103

== ENCOUNTER 2025-05-17 14:55 | Outpatient (OUT) | payer OTHER, SELFPAY ==
--- OUTSIDE RECORDS SUMMARY | 2024-09-14 11:45 | XMS_ITS ---
Author Organization [facility] Address [address] [place] [address] Care Team Providers Care Ultimate Hoops Scoreboard Operator Name Role Phone Cristian Marroquin Primary Care Provider UnavailRita Serrato Unavailable [phone] Abram Savage Unavailable [phone] REASON FOR VISIT 3 month follow up has to have 3:45 Encounters Encounter Location Date Provider Diagnosis [facility] [address] [place] [phone] 09/14/2024 Abram Savage Plan Of Treatment Next Appt Details Provider Name:Abram Andino Janette, 1 03:45:00 PM, [address] [place] [address], [phone], Progress Notes * NOEL LOBODOB:[birth year] (60 yo M)Acc No.[id number]:09/14/2024 Patient: JAYA PISANOALD Provider: Lila Savage MD :1965 A ge:59 Y S ex:Male Date:09/14/2024 Address:[address] [place] [phone] Pcp:Cristian Marroquin Subjective: * Chief Complaints: * 1 . 3 month follow up has to have 3:45. * Medical History: Objective: * Vitals: Assessment: Plan: * Treatment: Forms: * Images: * Electronic signature of Abram Savage MD on 05/17/2025 at 02:59 PM EDT Sign off status: Pending * Provider: Lila Savage MD Date: 0 09/14/2024 Generated for Parvez carbajal/Sara/Tigre on: 0 05/17/2025 02:59 PM EDT
--- OUTSIDE RECORDS SUMMARY | 2025-05-17 14:59 | XMS_ITS | Patient Health Record ---
Author Organization [facility] [place] Address [address] [place] [address] Care Team Providers Care Glass Products Inspector Name Role Phone Castro Marroquin Primary Care Provider Allergies Allergen (clinical drug ingredient) Drug/Non Drug Allergy documented on EMR Reaction Allergy Type Onset Date Status Substance with sulfonamide structure and antibacterial mechanism of action (substance) Sulfa Antibiotics canker sore Drug Allergy Active Results Component Value Reference Range Notes CBC AUTO DIFF Reviewed date:04/03/2025 08:32:41 PM Interpretation: Performing Lab: Notes/Report: [facility] , White Blood Count 9.6 4.0-11.0 10 3/uL Red Blood Count 4.62 4.70-6.10 10 6/uL Hemoglobin 16.6 14.0-18.0 g/dL Hematocrit 46.5 42.0-54.0 % Mean Corpuscular Volume 100.6 80.0-94.0 fL Mean Corpuscular Hemoglobin 35.9 25.9-34.0 pg Mean Corpuscular HGB Conc 35.7 29.9-35.2 g/dL Red Cell Distribution Width 11.9 11.0-15.0 % Platelet Count 202 150-450 10 3/uL Mean Platelet Volume 10.4 9.5-13.5 fL Neutrophils Percent Auto 69.1 43.0-75.0 % Lymphocytes Percent Auto 22.2 20.5-60.0 % Monocytes Percent Auto 7.3 1.7-12.0 % Eosinophils Percent Auto 0.2 0.9-7.0 % Basophils Percent Auto 0.4 0.2-2.0 % Immature Granulocytes Pct Auto 0.8 0.0-0.5 % Neutrophils Absolute Auto 6.7 1.4-6.5 10 3/uL Lymphocytes Absolute Auto 2.1 1.2-3.8 10 3/uL Monocytes Absolute Auto 0.7 0.3-0.8 10 3/uL Eosinophils Absolute Auto 0.0 0.0-0.7 10 3/uL Basophils Absolute Auto 0.0 0.0-0.1 10 3/uL Immature Granulocytes Abs Auto 0.08 0.00-0.03 10 3/uL Performing Lab: see note ML - [facility] FREE T3 Reviewed date:04/03/2025 08:32:41 PM Interpretation: Performing Lab: Notes/Report: [facility] , Free T3 1.78 2.18-3.98 pg/mL Performing Lab: see note - [facility] GLYCOHEMOGLOBIN A1C Reviewed date:04/03/2025 08:32:41 PM Interpretation: Performing Lab: Notes/Report: [facility] , Glycohemoglobin A1C 5.2 4.5-6.2 % ADA RECOMMENDED LIMIT 4.0 - 6.0 ADA THERAPEUTIC TARGET < 7.0 ACTION SUGGESTED > 7.0 Estimated Average Glucose 103 Performing Lab: see note - [facility] INSULIN Reviewed date:04/03/2025 08:32:41 PM Interpretation: Performing Lab: Notes/Report: [facility] , Insulin 68.5 2.6-24.9 uIU/mL Performed at: - [facility] [id number] Fertilizer Applicator: Rafael Law PhD, Phone: [phone] Performing Lab: see note - [facility] LB LIPID PROFILE Reviewed date:04/03/2025 08:32:41 PM Interpretation: Performing Lab: Notes/Report: [facility] , Triglycerides 52 <=150 mg/dL Cholesterol 172 <=200 mg/dL HDL Cholesterol 75 40-60 mg/dL > or =60 mg/dl - LOW CARDIOVASCULAR RISK <40 mg/dl - HIGH CARDIOVASCULAR RISK LDL Cholesterol Calculated 87.0 <100 mg/dl OPTIMAL 100-129 mg/dl NEAR OR ABOVE OPTIMAL 130-159 mg/dl BORDERLINE HIGH 160-189 mg/dl HIGH >190 mg/dl VERY HIGH VLDL CHOLESTEROL 10.4 Chol HDL Ratio 2.3 3.3 - 4.4 LOW RISK 4.4 - 7.1 AVERAGE RISK 7.1 - 11.0 MODERATE RISK >11.0 HIGH RISK Performing Lab: see note ML - [facility] [place] LB PROF 14(COMP METB) Reviewed date:04/03/2025 08:32:41 PM Interpretation: Performing Lab: Notes/Report: [facility] , Sodium 141 136-145 mmol/L Potassium 4.4 3.5-5.1 mmol/L Chloride 108 98-107 mmol/L Carbon Dioxide 29.1 21.0-32.0 mmol/L Anion Gap 8.3 Glucose 114 74-106 mg/dL Blood Urea Nitrogen 27.0 7.0-18.0 mg/dL Creatinine 0.66 0.70-1.30 mg/dL Estimated GFR ( Giovanna >60 >=60 mL/min/1.73m 2 Estimated GFR (Non- Marilee >60 >=60 mL/min/1.73m 2 BUN Creatinine Ratio 40.9 Calcium 9.0 8.5-10.1 mg/dL Bilirubin Total 0.5 0.2-1.0 mg/dL Aspartate Amino Transferase 38 15-37 U/L Alanine Aminotransferase 115 16-63 U/L Alkaline Phosphatase 112 46-116 U/L Total Protein 6.7 6.4-8.2 g/dL Albumin Level 3.5 3.4-5.0 g/dL Globulin 3.2 Albumin Globulin Ratio 1.1 Performing Lab: see note ML - [facility] [place] LB PSA SCREENING Reviewed date:04/03/2025 08:32:41 PM Interpretation: Performing Lab: Notes/Report: [facility] , Prostate Specific Antigen Scrn 1.06 <=4.00 ng/mL Performing Lab: see note ML - [facility] [place] LB T4 Reviewed date:04/03/2025 08:32:41 PM Interpretation: Performing Lab: Notes/Report: [facility] , T4 Thyroxine 5.20 4.50-12.10 ug/dL Performing Lab: see note ML - [facility] [place] LB TSH Reviewed date:04/03/2025 08:32:41 PM Interpretation: Performing Lab: Notes/Report: [facility] , Thyroid Stimulating Hormone 1.524 0.358-3.740 u IU/mL Performing Lab: see note ML - [facility] LB URIC ACID SERUM Reviewed date:04/03/2025 08:32:41 PM Interpretation: Performing Lab: Notes/Report: [facility] , Uric Acid 6.4 3.5-7.2 mg/dL Performing Lab: see note ML - [facility] LB Reason For Referral No Information Medications Medication SIG (Take, Route, Frequency, Duration) Notes Start Date End Date Status Allopurinol 300 MG 1 tablet Orally Once a day; Duration: 90 days Active Gabapentin 400 MG 1 capsule Orally tid Active Ramipril 10 MG 2 capsule Orally Onc e a day; Duration: 90 days Active Metoprolol Tartrate 100 MG 1 tablet with food Orally 1 am and 2 evening; Duration: 90 days Active Ibuprofen 800 MG 1 tablet with food o r milk as needed Orally QID; Duration: 30 days PRN 03/31/2023 Active hydroCHLOROthiazide 25 MG 1 tablet in th e morning Orally Once a day; Duration: 90 days Active Social History Tobacco Use: Social History Observation Description Date Details (start date - stop date) Never Smoker NA - NA Tobacco Use/Smoking Question Answer Notes Patient is a nonsmoker Alcohol Screen (Audit-C) Question Answer Notes Did you have a drink contain ing alcohol in the past year? Yes How often did you have 6 or more drinks on one occasion in the past year? Four or more times a week (4 points) How many drinks did you have on a typical day when you were drinking in the past year? 5 or 6 drinks (2 points) How often did you have a dri nk containing alcohol in the past year? 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) Active confirmed Problem Cervicalgia (08021029) Cervicalgia (M54.2) Active confirmed Problem Plantar fascial fibromatosis (32468925) Plantar fascial fibromatosis (M72.2) Active confirmed Problem Dysuria (08567956) Dysuria (R30.0) Active confi rmed Problem Chest pain (49685006) Chest pain (R07.9) Active confirmed Problem Hypertension (51016929) Hypertension (I10) Active confirmed Problem Gout (84080071) Gout (M10.9) Active confirmed Problem Knee pain (6309060883) Knee pain (M25.569) Active confirmed Problem Alcohol abuse (71206893) Alcohol abuse (F10.10) Active confirmed Problem Edema (323591316) Edema leg (R60.0) Active conf irmed Problem Well adult (176967104) Well adult (Z00.00) Active confirmed Problem Sciatica (11893039) Sciatica (M54.30) Active co nfirmed Problem Plantar fasciitis (114313465) Plantar fasciitis (M72.2) Active confirmed Problem Bladder spasm (587893052) Bladder spasm (N32.89) Active confirmed Problem Cervical myelopathy (688074268) Cervical myelopathy (G95.9) Active confirmed Problem Inflammation of bursa of olecranon (974676034) Olecranon bursitis, right (M70.21) Active confirmed Problem Cervical radiculopathy (71926837) Cervical radicular pain (M54.12) Active confirmed Problem Pain in left foot (070662106428798) Left foot pain (M79.672) Active confirmed Problem Acute urinary tract infection (227017056) Acute UTI (N39.0) Active confirmed Problem Cervical spondylosis without myelopathy (143857773) Spondylosis of cervicothoracic region w/o myelopathy or radiculopathy (M47.813) Active confirmed Problem Inguinal hernia (194788044) Hernia, inguinal, left (K40.90) Active confirmed Problem Entrapment of right ulnar nerve (762349881770040) Entrapment of right ulnar nerve (G56.21) Active confirmed Problem Pain in thoracic spine (363708818) Back pain, thoracic (M54.6) Active confirmed Problem Non-suppurative otitis media (041149950) Otitis media, serous (H65.90) Active confirmed Problem Carpal tunnel syndrome (51470704) Carpal tunnel syndrome, bilateral upper limbs (G56.03) Active confirmed Problem Degeneration of cervical intervertebral disc (14217881) Other cervical disc degeneration at C5-C6 level (M50.322) Active confirmed Problem Headache (07064991) Headache, unspecified (R51.9) Active confirmed Problem Chronic low back pain (finding) (810780255) Chronic midline low back pain without sciatica (M54.50) Active confirmed Vital Signs Blood pressure diastolic 80 mm Hg 03/28/2025 Height 68 in 03/28/2025 Blood pressure systolic 130 mm Hg 03/28/2025 Weight 209 lbs 03/28/2025 BMI 31.77 kg/m2 03/28/2025 Encounters Encounter Location Date Provider Diagnosis [facility] [address] [place] [address] 03/28/2025 Castro Marroquin Well adult Z00.00 [facility] [address] [place] [address] 03/15/2025 Castro Marroquin [facility] [address] [place] [address] 04/03/2025 Castro Marroquin Abnormal thyroid blo od test R94.6 [facility] ([place], [place]) [address] [place] [address] 05/24/2024 Castro Marroquin [facility] [address] [place] [address] 07/15/2024 Castro Marroquin [facility] [address] [place] [address] 09/13/2024 Castro Marroquin Assessments Encounter Date Diagnosis (ICD Code) Assessment Notes Treatment Notes Treatment Clinical Notes Section Notes 03/28/2025 Well adult (ICD-10 - Z00.00) 04/03/2025 Abnormal thyroid blood test (ICD-10 - R94.6) Plan Of Treatment Pending Test Test Name Order Date MRI : C spine 03/24/2024 MRI : Cervical without Contrast 04/02/20 24 HEMOGLOBIN A1C (GLYCO) 03/28/2025 INSULIN, TOTAL 03/28/2025 LIPID PANEL (CHOL/TRIG/HDL/LDL) 03/28/20 25 URIC ACID 03/28/2025 Urinalysis Microscopic 12/26/2023 Urinalysis Microscopic 01/16/2024 STOOL OCCULT BLOOD 03/28/2025 CULTURE URINE 01/16/2024 CULTURE URINE 12/26/2023 MRI CSPINE WO CON 01/29/2023 US KIDNEYS BLADDER 01/16/2024 THYROID PANEL (T4/TSH/FREE T3) THYROID PANEL (T4/TSH/FREE T3) PSA, SCREENING 03/28/2025 CMP (COMP MET [place]) w/eGFR CKD-EPI 2024 CBC WITH DIFF 03/28/2025 Insurance Providers Payer Name Payer Address Payer Phone Subscriber Number Group Number Insured Name Patient Relationship to Insured Coverage Start Date Coverage End Date [employer] [address] [address] [place] [address] [id number] Perez Wilkins Self - patient is the insured Medications Administered Medication Instructions Date of Administration Dosage Notes Ketorolac Tromethamine 03/28/2025 60 mg Triamcinolone 40 mg/ml 03/28/2025 120 mg Medical (General) History Medical History History ICD Code Cervicalgia M54.2 Overweight E66.3 Carpal tunnel syndrome, bilateral upper limbs G56.03 Headache, unspecified R51.9 Other cervical disc degeneration at C5-C 6 level M50.322 Otitis media, serous H65.90 Spondylolysis, cervicothoracic region M4 3.03 Spondylosis of cervicothoracic region w/ o myelopathy or radiculopathy M47.813 Edema leg R60.0 Sciatica M54.30 Back pain, thoracic M54.6 Entrapment of right ulnar nerve G56.21 Chronic midline low back pain without sc iatica M54.50 Hernia, inguinal, left K40.90 Chest pain R07.9 Hypertension I10 Well adult Z00.00 Gout M10.9 Olecranon bursitis, right M70.21 Alcohol abuse F10.10 Knee pain M25.569 Surgical History Surgery Date(Month/Year) Right elbow Groin surgery
--- OUTSIDE RECORDS SUMMARY | 2025-05-17 14:59 | XMS_ITS | Patient Health Record ---
Author Organization [facility] Address [address] [place] [address] Care Team Providers Care Assistant Credit Manager Name Role Phone Cristian Marroquin Primary Care Provider Rita Mesa Unavailable [phone] Abram Savage Unavailable [phone] Allergies Allergen (clinical drug ingredient) Drug/Non Drug Allergy documented on EMR Reaction Allergy Type Onset Date Status Sulfa (uncoded) Canker sore Allergy Ac tive Reason For Referral No Information Medications Medication [...] Problem Status W/U Status Risk Notes Problem 97315261 Cervical radiculitis (M54.12) Active confirmed Problem 33938933 Cervical spinal stenosis (M48.02) Active confirmed Problem 304407547 Cervical myelopa thy (G95.9) Active confirmed Problem 04918409 Other cervical d isc degeneration at C6-C7 level (M50.323) Active confirmed Problem 25926169 Degeneration of C5-C6 intervertebral disc (M50.322) Active confirmed Problem 142962749 Facet arthropath y, cervical (M47.812) Active confirmed Vital Signs Blood pressure diastolic 110 mm Hg 09/21/2024 Height 67 in 12/21/2024 Blood pressure systolic 178 mm Hg 09/21/2024 Weight 210 lbs 12/21/2024 BMI 32.89 12/21/2024 Encounters Encounter Location Date Provider Diagnosis [facility] [address] [place] [address] 05/20/2024 Abram Savage Cervical radiculitis M54.12 [facility] [address] [place] [phone] 06/15/2024 [facility] Cervical radiculitis M54.12 ; Cervical spinal stenosis M48.02 and Cervical myelopathy G95.9 [facility] [address] [place] [phone] 09/21/2024 Baram Bahonofre Cervical radiculitis M54.12 ; Cervical spinal stenosis M48.02 ; Degeneration of C5-C6 intervertebral disc M50.322 and Other cervical disc degeneration at C6-C7 level M50.323 [facility] [address] [place] [phone] 12/21/2024 Abram Bahn Cervical radiculitis M54.12 ; Cervical spinal stenosis M48.02 ; Other cervical disc degeneration at C6-C7 level M50.323 ; Degeneration of C5-C6 intervertebral disc M50.322 and Cervical myelopathy G95.9 [facility] [address] [place] [address] 02/14/2025 Abram Bahonofre Cervical radiculitis M54.12 Assessments Encounter Date Diagnosis (ICD Code) Assessment Notes Treatment Notes Treatment Clinical Notes Section Notes 05/20/2024 Cervical radiculitis (ICD-10 - M54.12) 06/15/2024 Cervical radiculitis (ICD-10 - M54.12) 09/21/2024 Cervical radiculitis (ICD-10 - M54.12) 12/21/2024 Cervical radiculitis (ICD-10 - M54.12) 02/14/2025 Cervical radiculitis (ICD-10 - M54.12) 12/21/2024 Cervical spinal stenosis (ICD-10 - M48.02) 09/21/2024 Cervical spinal stenosis (ICD-10 - M48.02) 06/15/2024 Cervical spinal stenosis (ICD-10 - M48.02) 06/15/2024 Cervical myelopathy (ICD-10 - G95.9) 09/21/2024 Degeneration of C5-C6 intervertebral disc (ICD-10 - M50.322) 12/21/2024 Other cervical disc degeneration at C6-C7 level (ICD-10 - M50.323) 12/21/2024 Degeneration of C5-C6 intervertebral disc (ICD-10 - M50.322) 09/21/2024 Other cervical disc degeneration at C6-C7 level (ICD-10 - M50.323) 12/21/2024 Cervical myelopathy (ICD-10 - G95.9) 06/15/2024 Other After thorough history, physical examination, [...] along with medication management both prescriptive and [id number]. I did spend 30 minutes with the [...] along with medication management both prescriptive and [id number]. I did spend 30 minutes with the [...] along with medication management both prescriptive and [id number]. I did spend 30 minutes with the patient today discussing their chronic pain condition and chart review. This will suffice as an H&P for any interventional procedure. import current medications Plan Of Treatment Pending Test Test Name Order Date Cervical spine 2 v - 89212 04/20/2024 Next Appt Details Provider Name:Abram Savage, 1 03:45:00 PM, [address] [place] [address], [phone], Insurance Providers Payer Name Payer Address Payer Phone Subscriber Number Group Number Insured Name Patient Relationship to Insured Coverage Start Date Coverage End Date [employer] [address] [address] [place] [address] [id number] NOEL LOBO Self - patient is the insured Medical (General) History Medical History History ICD Code Bilateral Carpal Tunnel Syndrome Hypertension Gout Surgical History Surgery Date(Month/Year) Right elbow surgery Groin surgery
--- OUTSIDE RECORDS SUMMARY | 2025-05-17 15:42 | XMS_ITS | CCD ---
Author Organization [facility] CliniSyut Care Team Providers Care Audio Video Mechanic Name Role Phone ROGELIO ., DR GILLIS [...] Containting Drugs) Drug allergy (disorder) [address] [facility] Repository (1 source) Sulfonamides (Antibiotic) Drug allergy (disorder) [address] [facility] Repository (1 source) Iodinated contrast media (substance) Drug allergy Unknown [facility] Other (1 source) Substance with sulfonamide structure and antibacterial mechanism of action (substance) Drug allergy Unknown [facility] [employer] Other (1 source) Contrast Allergy PreMed Pack Drug allergy Unknown [facility] [employer] Other Medications Current Medications Medication Drug Class(es) [...] by: MARIMAR PRICE Date: 2022-12-06 15:40 Normal [facility] MRI BRAIN WO W CONon 022 MRI [...] by: DHIRAJ HIGGINS Date: 2022-07-16 09:10 Normal [facility] MRI CSPINE W CONon 2 MRI CSPINE [...] DHIRAJ HIGGINS Date: 2022-07-16 08:23 [address] [facility] MRI CSPINE WO CONon 06-27-20 [facility] MRI CSPINE WO CON [...] DHIRAJ HIGGINS Date: 2022-06-27 18:59 Normal [address] [facility] INSULINon 06-20-2022 Insulin 50.7 uIU/mL Critically high 2.6-24.9 The [facility] Comment on above: Performed By: #### I NSULIN ####[facility] [address] [place] [address]DrColby Marsh CBC AUTO DIFFon 06-19-2022 BASO # 0.1 103/ul Normal 0.0-0.1 [facility] Comment on above: Performed By: #### C BC ####[facility] [address] [place] [address]DrColby Marsh Basophils/100 WBC (Bld) 0.9 % Normal 0.2-2.[address] [facility] Comment on above: Performed By: #### C BC ####[facility] [address] [place], [place] [address]Dr. Yaron Marsh EO # 0.2 103/ul Normal 0.0-0.[address] [facility] Comment on above: Performed By: #### C BC ####[facility] [address] [place], [place] [address]Dr. Yaron Marsh Eosinophils/100 WBC (Bld) 3.4 % Normal 0.9-7.[address] [facility] Comment on above: Performed By: #### C BC ####[facility] [address] [place], [place] [address]Dr. Yaron Mrash Erythrocyte distribution width (RBC) [Ratio] 11.6 % Normal 11.0-15.[address] [facility] Comment on above: Performed By: #### C BC ####[facility] Rcyozx[address] [place], [place] [address]Dr. Yaron Marsh Hematocrit (Bld) [Volume fraction] 48.2 % Normal 42.0-54.[address] [facility] Comment on above: Performed By: #### C BC ####[facility] Dr[address] [place], [place] [address]Dr. Yaron Marsh Hemoglobin (Bld) [Mass/Vol] 16.9 g/dL Normal 14.0-18.[address] [facility] Comment on above: Performed By: #### C BC ####[facility] [address] [place], [place] [address]Dr. Yaron Marsh IG # 0.02 10e3/ul Normal 0.00-0.[address] [facility] Comment on above: Performed By: #### C BC ####[facility] W[address] [place], [place] [address]Dr. Yaron Marsh IG % 0.3 % Normal 0.0-0.[address] [facility] Comment on above: Performed By: #### C BC ####[facility] [address] [place], [place] [address]Dr. Yaron Marsh LYMPH # 2.0 103/ul Normal 1.2-3.[address] [facility] Comment on above: Performed By: #### C BC ####[facility] [address] [place] [address]Dr. Yaron Marsh Lymphocytes/100 WBC (Bld) 31.4 % Normal 20.5-60.[address] [facility] Comment on above: Performed By: #### C BC ####[facility] [address] [place] [address]Dr. Yaron Marsh MANUAL DIFF REQ NO Normal [facility] Comment on above: Performed By: #### C BC ####[facility] [address] [place] [address]Dr. Yaron Marsh MCH (RBC) [Entitic mass] 35.1 pg Critically high 25.9-34.[address] [facility] Comment on above: Performed By: #### C BC ####[facility] [address] [place], [place] [address]Dr. Yaron Marsh MCHC (RBC) [Mass/Vol] 35.1 g/dL Normal 29.9-35.[address] [facility] Comment on above: Performed By: #### C BC ####[facility] It[address]fr[address] [place], [place] [address]Dr. Yaron Marsh MCV (RBC) [Entitic vol] 100.2 fL Critically high 80.0-94.[address] [facility] Comment on above: Performed By: #### C BC ####[facility] [address] [place], [place] [address]Dr. Yaron Marsh MONO # 0.5 103/ul Normal 0.3-0.[address] [facility] Comment on above: Performed By: #### C BC ####[facility] N[address] [place], [place] [address]Dr. Yaron Marsh Monocytes/100 WBC (Bld) 7.1 % Normal 1.7-12.[address] [facility] Comment on above: Performed By: #### C BC ####[facility] [address] [place], [place] [address]Dr. Yaron Marsh NEUT # 3.7 103/ul Normal 1.4-6.[address] [facility] Comment on above: Performed By: #### C BC ####[facility] [address] [place] [address]Dr. Yaron Maximo Neutrophils/100 WBC (Bld) 56.9 % Normal 43.0-75.[address] [facility] Comment on above: Performed By: #### C BC ####[facility] [address] [place] [address]Dr. Yaron Maximo Platelet mean volume (Bld) [Entitic vol] 9.9 fL Normal 9.5-13.[address] [facility] Comment on above: Performed By: #### C BC ####[facility] [address] [place] [address]DrColby Marsh PLT 177 103/ul Normal 150-[address] [facility] Comment on above: Performed By: #### C BC ####[facility] [address] [place] [address]Dr. Yaron Marsh RBC 4.81 106/ul Normal 4.70-6.[address] [facility] Comment on above: Performed By: #### C BC ####[facility] [address] [place] [address]DrColby Yaron Maximo WBC 6.5 103/ul Normal 4.0-11.[address] [facility] Comment on above: Performed By: #### C BC ####[facility] [address] [place] [address]DrColby Marsh FREE THYROXINE INDEX T7on FTI 2.05 Normal 1.30-4.[address] [facility] Comment on above: Performed By: #### L IPID, T7, CMP, TSH #### [facility] [address] [address] [address] Yaron Marsh T3U 33.0 % Normal 33.0-40.[address] [facility] Comment on above: Performed By: #### L IPID, T7, CMP, TSH #### [facility] [address] [address] [address] Yaron Marsh T4 [Mass/Vol] 6.20 ug/dL Normal 4.50-12.10 [facility] Comment on above: Performed By: #### L IPID, T7, CMP, TSH #### [facility] [address] [address] [address] Yaron Marsh GLYCOHEMOGLOBIN A1Con 2021 ADA RECOMMENDATION SEE BELOW Normal [facility] Comment on above: Result Comment: ADA RECOMMENDED LIMIT 4.0 - 6.0 ADA THERAPEUTIC TARGET < 7.0 ACTION SUGGESTED > 7.0 Performed By: #### A 1C #### [facility] [address] [address] [address] Yaron Marsh Glucose [Mass/Vol] 97 mg/dL Normal [facility] Comment on above: Performed By: #### A 1C #### [facility] [address] [address] [address] Yaron Marsh HbA1c (Bld) [Mass fraction] 5.0 % Normal 4.5-6.2 [facility] Comment on above: Performed By: #### A 1C #### [facility] [address] [address] [address] Yaron Marsh LIPID PROFILEon 06-19-2022 CHOL-HDL RATIO NORM SEE BELOW Normal [facility] Comment on above: Result Comment: 3.3 - 4.4 LOW RISK 4.4 - 7.1 AVERAGE RISK 7.1 - 11.0 MODERATE RISK >11.0 HIGH RISK Performed By: #### L IPID, T7, CMP, TSH #### [facility] [address] [address] [address] Yaron Marsh Cholesterol [Mass/Vol] 196 mg/dL Normal <=200 [facility] Comment on above: Performed By: #### L IPID, T7, CMP, TSH #### [facility] [address] [address] [address] Yaron Marsh Cholesterol in HDL [Mass/Vol] 57 mg/dL Normal 40-60 [facility] Comment on above: Performed By: #### L IPID, T7, CMP, TSH #### [facility] [address] [address] [address] Yaron Marsh Cholesterol in LDL [Mass/Vol] 122.6 mg/dL Normal [facility] Comment on above: Performed By: #### L IPID, T7, CMP, TSH #### [facility] [address] [address] [address] Yaron Marsh Cholesterol.total/Ch olesterol in HDL [Mass ratio] 3.4 {ratio} Normal [facility] Comment on above: Performed By: #### L IPID, T7, CMP, TSH #### [facility] [address] [address] [address] Yaron Marsh HDL NORMAL > or = 60 mg/dl - LO W CARDIOVASCULAR RISK <40 mg/dl - HIGH CARDIOVASCULAR RISK Normal [facility] Comment on above: Performed By: #### L IPID, T7, CMP, TSH #### [facility] [address] [address] [address] Yaron Marsh LDL CALC NORMAL SEE BELOW Normal [facility] Comment on above: Result Comment: <100 mg/dl OPTIMAL 100 - 129 mg/dl NEAR OR ABOVE OPTIMAL 130 - 159 mg/dl BORDERLINE HIGH 160 - 189 mg/dl HIGH >190 mg/dl VERY HIGH Performed By: #### L IPID, T7, CMP, TSH #### [facility] [address] [address] [address] Yaron Marsh Triglyceride [Mass/Vol] 82 mg/dL Normal <=150 [facility] Comment on above: Performed By: #### L IPID, T7, CMP, TSH #### [facility] [address] [address] [address] Yaron Marsh VLDL CALC 16.4 mg/dL Normal [facility] Comment on above: Performed By: #### L IPID, T7, CMP, TSH #### [facility] [address] [address] [address] Yaron Marsh PROF 14(COMP METB)on 022 Albumin [Mass/Vol] 3.8 g/dL Normal 3.4-5.0 [facility] Comment on above: Performed By: #### L IPID, T7, CMP, TSH #### [facility] [address] [address] [address] Yaron Marsh Albumin/Globulin [Mass ratio] 1.2 {ratio} Normal [facility] Comment on above: Performed By: #### L IPID, T7, CMP, TSH #### [facility] [address] [place] [address] Dr. Yaron Marsh ALP [Catalytic activity/Vol] 94 U/L Normal 46-116 [facility] Comment on above: Performed By: #### L IPID, T7, CMP, TSH #### [facility] [address] [place] [address] Dr. Yaron Marsh ALT [Catalytic activity/Vol] 124 U/L Critically high 16-63 [facility] Comment on above: Performed By: #### L IPID, T7, CMP, TSH #### [facility] [address] [place] [address] Dr. Yaron Marsh Anion gap [Moles/Vol] 8.6 mmol/L Normal [facility] Comment on above: Performed By: #### L IPID, T7, CMP, TSH #### [facility] [address] [place] [address] Dr. Yaron Marsh AST [Catalytic activity/Vol] 79 U/L Critically high 15-37 [facility] Comment on above: Performed By: #### L IPID, T7, CMP, TSH #### [facility] [address] [address] [address] Yaron Marsh Bilirubin [Mass/Vol] 0.6 mg/dL Normal 0.2-1.0 [facility] Comment on above: Performed By: #### L IPID, T7, CMP, TSH #### [facility] [address] [place] [address] Dr. Yaron Marsh Calcium [Mass/Vol] 9.3 mg/dL Normal 8.5-10.1 [facility] Comment on above: Performed By: #### L IPID, T7, CMP, TSH #### [facility] [address] [place] [address] Dr. Yaron Marsh Chloride [Moles/Vol] 106 mmol/L Normal 98-[address] [facility] Comment on above: Performed By: #### L IPID, T7, CMP, TSH #### [facility] [address] [address] [address] Yaron Marsh CO2 [Moles/Vol] 29.3 mmol/L Normal 21.0-32.0 [facility] Comment on above: Performed By: #### L IPID, T7, CMP, TSH #### [facility] [address] [address] [address] Yaron Marsh Creatinine [Mass/Vol] 0.69 mg/dL Critically low 0.70-1.[address] [facility] Comment on above: Performed By: #### L IPID, T7, CMP, TSH #### [facility] [address] [address] [address] Yaron Marsh EGFR-AF SALVADOREAN >60 Normal >=60 [facility] Comment on above: Performed By: #### L IPID, T7, CMP, TSH #### [facility] [address] [address] [address] Yaron Marsh EGFR-NON AF SALVADOREAN >60 Normal >=60 [facility] Comment on above: Performed By: #### L IPID, T7, CMP, TSH #### [facility] [address] [address] [address] Yaron Marsh Globulin (S) [Mass/Vol] 3.3 g/dL Normal [facility] Comment on above: Performed By: #### L IPID, T7, CMP, TSH #### [facility] [address] [address] [address] Yaron Marsh Glucose [Mass/Vol] 104 mg/dL Normal 74-106 [facility] Comment on above: Performed By: #### L IPID, T7, CMP, TSH #### [facility] [address] [address] [address] Yraon Marsh Potassium [Moles/Vol] 4.9 mmol/L Normal 3.5-5.[address] [facility] Comment on above: Performed By: #### L IPID, T7, CMP, TSH #### [facility] [address] [place] [address] Dr. Yaron Marsh Protein [Mass/Vol] 7.1 g/dL Normal 6.4-8.2 [facility] Comment on above: Performed By: #### L IPID, T7, CMP, TSH #### [facility] [address] [place] [address] Dr. Yaron Marsh Sodium [Moles/Vol] 139 mmol/L Normal 136-145 [facility] Comment on above: Performed By: #### L IPID, T7, CMP, TSH #### [facility] [address] [place] [address] Dr. Yaron Marsh Urea nitrogen [Mass/Vol] 18.0 mg/dL Normal 7.0-18.0 [facility] Comment on above: Performed By: #### L IPID, T7, CMP, TSH #### [facility] [address] [place] [address] Dr. Yaron Marsh Urea nitrogen/Creatinine [Mass ratio] 26.1 mg/mg Normal [facility] Comment on above: Performed By: #### L IPID, T7, CMP, TSH #### [facility] [address] [place] [address] Dr. Yaron Marsh [facility] 06-19-2022 TSH 3.272 uIU/mL Normal 0.358-3.740 [facility] Comment on above: Performed By: #### L IPID, T7, CMP, TSH #### [facility] [address] [place] [address] Dr. Yaron Marsh Vital Signs Date Time Vital Sign Value Performing Clinician Cesilia licona 03-31-2023 13:00-0400 Body height Didi Blades Other [facility] [employer] Other 03-31-2023 13:00-0400 Body mass index (BMI) [Ratio] 32.1 kg/m2 Didi Blades Other [facility] [employer] Other 03-31-2023 13:00-0400 Body weight 92.99 kg Didi Blades Other [facility] [employer] Other 03-31-2023 13:00-0400 Diastolic blood pressure 90 mm[Hg] Didi Blades Other [facility] [employer] Other 03-31-2023 13:00-0400 Systolic blood pressure 138 mm[Hg] Didi Blades Other [facility] [employer] Other Encounters Encounter Date Encounter Type Care Provider Facility Start: 03-31-2023 End: 03-31-2023 ambulatory Didi Blades Other [place] [facility] Other Start: 03-31-2023 Office outpatient ne w 45 minutes Didi Blades [facility] Start: 12-06-2022 End: 12-07-2022 ambulatory ELIA BISHOP Facility:[facility] Start: 09-10-2022 End: 10-18-[address] FRANCIE CAMPBELL Facility:[facility] Start: 07-15-2022 End: 07-16-[address] CARLIN MERCADO . Facility:[facility] Start: 06-27-2022 End: 06-28-[address] CARLIN MERCADO . Facility:[facility] Start: 06-23-2022 Encounter for genera l adult medical examination without abnormal findings DR CARLIN MERCADO . [facility] Start: 06-19-2022 End: 06-20-[address] CARLIN MERCADO . Facility:[facility] Start: 06-19-2022 End: 06-20-2022 Encounter for general adult medical examination without abnormal findings DR CARLIN MERCADO . Facility:[facility] Procedures Date Procedure Procedure Detail Performing Clinician Start: 06-19-[address] JOHN MERCADO . Comment on above: Performed By: #### [facility] #### [facility] [address] [place] [address] Dr. Yaron Marsh Payers Date Payer Category Payer Unknown [id number] [id number] [id number] 1965 Unknown [id number] 2.16.84 [id number] 1965 Unknown [id number] 2.16.84 [id number] 1967 Unknown [id number] 2.16.84 [id number] 1967 Unknown [id number] 2.16.84 [id number] 1959 Unknown [id number] 1957 Unknown [id number] Social History Date Type Detail Facility Sex Assigned At [facility] [employer] Other Evaluation note Note Date & Type Note Facility Evaluation note No Information [facility] [employer] Other History general Narrative - Reported Note Date & Type Note Facility History general Narrative - Reported Type Medical History Gout Medical History high blood pressure Surgical History hernia repair Surgical History elbow surgery Hospitalization History see above surg. hx. [facility] [employer] Other Summary Purpose Family History No Family [...] BE BASED ON THE PRIMARY CLINICAL RECORDS. [facility] [employer] [facility]. provides no warranty or guarantee of the accuracy or completeness of information in this document.
[2025-05-17 16:16] LABS: Free T3 2.31 pg/mL (2.18-3.98); Thyroid Stimulating Hormone 2.755 uIU/mL (0.358-3.740)
== END 2025-05-17 14:56 | disposition home or self-care (01) ==
PROVIDERS: PCP Family Medicine; Visit Provider Family Medicine
DX: R94.6 Abnormal results of thyroid function studies (principal)
CPT/HCPCS: 36415; 84436; 84443; 84481

== ENCOUNTER 2025-06-03 14:48 | Outpatient (OUT) | payer OTHER, SELFPAY ==
--- NOTE | 2025-06-03 14:51 | XR_ITS ---
[address] [address] Patient Name: NOEL LOBO MRN: [id number] date: 1965 Sex: M Assigned Patient Location: [facility] Current Patient Location: [facility] Accession/Order Number: [id number] Exam Date: 06/03/2025 15:00 Report Date: 06/03/2025 16:01 At the request of: CARLIN MERCADO MD Procedure: XR lumbar spine min 4V 4 views Lumbar Spine HISTORY: Lumbar pain. No injury. COMPARISON: None POSTSURGICAL CHANGES: None BONY ALIGNMENT: Adequate HYPERMOBILITY:No bending imaging. LISTHESIS:None FRACTURE: None DEGENERATIVE CHANGES: Anterior hyperostosis. Mild spondylosis. Lower lumbar facet degeneration SOFT TISSUES: 5 mm nonobstructing left renal calculus. BONY MINERALIZATION:Adequate XR/XR lumbar spine min 4V IMPRESSION: Moderate lower lumbar degeneration greatest in the facets. Impression dictated by: Conor Ricardo M.D. 06/03/2025 4:01 PM Dictation Location: [facility]ITAL[facility]Comm[facility] Electronically authenticated by: [id number] Date: 06/03/2025 16:01
--- OUTSIDE RECORDS SUMMARY | 2025-06-03 14:53 | XMS_ITS | CCD ---
Author Organization [facility] Care Team Providers Care Welfare Eligibility Worker Name Role Phone ROGELIO ., DR GILLIS [...] Containting Drugs) Drug allergy (disorder) 5 [facility] Repository (1 source) Sulfonamides (Antibiotic) Drug allergy (disorder) 5 [facility] Repository (1 source) Iodinated contrast media (substance) Drug allergy Unknown [facility] Other (1 source) Substance with sulfonamide structure and antibacterial mechanism of action (substance) Drug allergy Unknown [facility] Other (1 source) Contrast Allergy PreMed Pack Drug allergy Unknown [facility] Other Medications Current Medications Medication Drug Class(es) [...] by: MARIMAR PRICE Date: 2022-12-06 15:40 Normal [facility] MRI BRAIN WO W CONon 022 [...] by: DHIRAJ HIGGINS Date: 2022-07-16 09:10 Normal [facility] MRI CSPINE W CONon 2 MRI [...] DHIRAJ HIGGINS Date: 2022-07-16 08:23 Normal [facility] MRI CSPINE WO CONon 06-27-20 [facility] MRI CSPINE WO CON [...] DHIRAJ HIGGINS Date: 2022-06-27 18:59 Normal [facility] INSULINon 06-20-2022 Insulin 50.7 uIU/mL Critically high 2.6-24.9 [facility] Comment on above: Performed By: #### I NSULIN ####[facility] [address] [address]DrColby Marsh CBC AUTO DIFFon 06-19-2022 BASO # 0.1 103/ul Normal 0.0-0.1 [facility] Comment on above: Performed By: #### C BC ####[facility] [address] [address]DrColby Marsh Basophils/100 WBC (Bld) 0.9 % Normal 0.2-2.0 [facility] Comment on above: Performed By: #### C BC ####[facility] X[address] [place], [place] [address]Dr. Yaron Marsh EO # 0.2 103/ul Normal 0.0-0.7 [facility] Comment on above: Performed By: #### C BC ####[facility] [address] [place], [place] [address]Dr. Yaron Marsh Eosinophils/100 WBC (Bld) 3.4 % Normal 0.9-7.0 [facility] Comment on above: Performed By: #### C BC ####[facility] To[address] [place], [place] [address]Dr. Yaron Marsh Erythrocyte distribution width (RBC) [Ratio] 11.6 % Normal 11.0-15.0 [facility] Comment on above: Performed By: #### C BC ####[facility] S[address] [place], [place] [address]Dr. Yaron Marsh Hematocrit (Bld) [Volume fraction] 48.2 % Normal 42.0-54.0 [facility] Comment on above: Performed By: #### C BC ####[facility] Y[address] [place], [place] [address]Dr. Yaron Marsh Hemoglobin (Bld) [Mass/Vol] 16.9 g/dL Normal 14.0-18.0 [facility] Comment on above: Performed By: #### C BC ####[facility] Jr[address] [place], [place] [address]Dr. Yaron Marsh IG # 0.02 10e3/ul Normal 0.00-0.03 [facility] Comment on above: Performed By: #### C BC ####[facility] [address] [place], [place] [address]Dr. Yaron Marsh IG % 0.3 % Normal 0.0-0.5 [facility] Comment on above: Performed By: #### C BC ####[facility] [address] [place], [place] [address]Dr. Yaron Marsh LYMPH # 2.0 103/ul Normal 1.2-3.8 [facility] Comment on above: Performed By: #### C BC ####[facility] [address] [address]Dr. Yaron Marsh Lymphocytes/100 WBC (Bld) 31.4 % Normal 20.5-60.0 [facility] Comment on above: Performed By: #### C BC ####[facility] [address] [place] [address]Dr. Yaron Marsh MANUAL DIFF REQ NO Normal [facility] Comment on above: Performed By: #### C BC ####[facility] [address] [address] [address]Dr. Yaron Marsh MCH (RBC) [Entitic mass] 35.1 pg Critically high 25.9-34.0 [facility] Comment on above: Performed By: #### C BC ####[facility] [address] [place], [place] [address]Dr. Yaron Marsh MCHC (RBC) [Mass/Vol] 35.1 g/dL Normal 29.9-35.2 [facility] Comment on above: Performed By: #### C BC ####[facility] L[address] [place], [place] [address]Dr. Yaron Marsh MCV (RBC) [Entitic vol] 100.2 fL Critically high 80.0-94.0 [facility] Comment on above: Performed By: #### C BC ####[facility] [address] [place], [place] [address]Dr. Yaron Marsh MONO # 0.5 103/ul Normal 0.3-0.8 [facility] Comment on above: Performed By: #### C BC ####[facility] [address] [place], [place] [address]Dr. Yaron Marsh Monocytes/100 WBC (Bld) 7.1 % Normal 1.7-12.0 [facility] Comment on above: Performed By: #### C BC ####[facility] [address] [place], [place] [address]Dr. Yaron Marsh NEUT # 3.7 103/ul Normal 1.4-6.5 [facility] Comment on above: Performed By: #### C BC ####[facility] [address] [place] [address]Dr. Yaron Maximo Neutrophils/100 WBC (Bld) 56.9 % Normal 43.0-75.0 [facility] Comment on above: Performed By: #### C BC ####[facility] [address] [place] [address]Dr. Yaron Maximo Platelet mean volume (Bld) [Entitic vol] 9.9 fL Normal 9.5-13.5 [facility] Comment on above: Performed By: #### C BC ####[facility] [address] [address]DrColby Marsh PLT 177 103/ul Normal 150-450 [facility] Comment on above: Performed By: #### C BC ####[facility] [address] [place] [address]Dr. Yaron Marsh RBC 4.81 106/ul Normal 4.70-6.10 [facility] Comment on above: Performed By: #### C BC ####[facility] [address] [place] [address]DrColby Yaron Maximo WBC 6.5 103/ul Normal 4.0-11.0 [facility] Comment on above: Performed By: #### C BC ####[facility] [address] [place] [address]DrColby Marsh FREE THYROXINE INDEX T7on FTI 2.05 Normal 1.30-4.50 [facility] Comment on above: Performed By: #### L IPID, T7, CMP, TSH #### [facility] Laboratory [address] [address] [address] Yaron Marsh T3U 33.0 % Normal 33.0-40.0 [facility] Comment on above: Performed By: #### L IPID, T7, CMP, TSH #### [facility] [address] [address] [address] Yaron Marsh T4 [Mass/Vol] 6.20 ug/dL Normal 4.50-12.10 [facility] Comment on above: Performed By: #### L IPID, T7, CMP, TSH #### [facility] [address] [address] [address] Yaron Marsh GLYCOHEMOGLOBIN A1Con 2021 ADA RECOMMENDATION SEE BELOW Normal [facility] Comment on above: Result Comment: ADA RECOMMENDED LIMIT 4.0 - 6.0 ADA THERAPEUTIC TARGET < 7.0 ACTION SUGGESTED > 7.0 Performed By: #### A 1C #### [facility] [address] [address] [address] Yaron Marsh Glucose [Mass/Vol] 97 mg/dL Normal [facility] Comment on above: Performed By: #### A 1C #### [facility] [address] [address] [address] Yaron Marsh HbA1c (Bld) [Mass fraction] 5.0 % Normal 4.5-6.2 [facility] Comment on above: Performed By: #### A 1C #### [facility] [address] [address] [address] Yaron Marsh LIPID PROFILEon 06-19-2022 CHOL-HDL RATIO NORM SEE BELOW Normal [facility] Comment on above: Result Comment: 3.3 - 4.4 LOW RISK 4.4 - 7.1 AVERAGE RISK 7.1 - 11.0 MODERATE RISK >11.0 HIGH RISK Performed By: #### L IPID, T7, CMP, TSH #### [facility] [address] [address] [address] Yaron Marsh Cholesterol [Mass/Vol] 196 mg/dL Normal <=200 [facility] Comment on above: Performed By: #### L IPID, T7, CMP, TSH #### [facility] [address] [address] [address] Yaron Marsh Cholesterol in HDL [Mass/Vol] 57 mg/dL Normal 40-60 [facility] Comment on above: Performed By: #### L IPID, T7, CMP, TSH #### [facility] [address] [address] [address] Yaron Marsh Cholesterol in LDL [Mass/Vol] 122.6 mg/dL Normal [facility] Comment on above: Performed By: #### L IPID, T7, CMP, TSH #### [facility] [address] [address] [address] Yaron Marsh Cholesterol.total/Ch olesterol in HDL [Mass ratio] 3.4 {ratio} Normal [facility] Comment on above: Performed By: #### L IPID, T7, CMP, TSH #### [facility] [address] [address] [address] Yaron Marsh HDL NORMAL > or = 60 mg/dl - LO W CARDIOVASCULAR RISK <40 mg/dl - HIGH CARDIOVASCULAR RISK Normal [facility] Comment on above: Performed By: #### L IPID, T7, CMP, TSH #### [facility] [address] [address] [address] Yaron Marsh LDL CALC NORMAL SEE BELOW Normal [facility] Comment on above: Result Comment: <100 mg/dl OPTIMAL 100 - 129 mg/dl NEAR OR ABOVE OPTIMAL 130 - 159 mg/dl BORDERLINE HIGH 160 - 189 mg/dl HIGH >190 mg/dl VERY HIGH Performed By: #### L IPID, T7, CMP, TSH #### [facility] [address] [address] [address] Yaron Marsh Triglyceride [Mass/Vol] 82 mg/dL Normal <=150 [facility] Comment on above: Performed By: #### L IPID, T7, CMP, TSH #### [facility] [address] [address] [address] Yaron Marsh VLDL CALC 16.4 mg/dL Normal [facility] Comment on above: Performed By: #### L IPID, T7, CMP, TSH #### [facility] [address] [address] [address] Yaron Marsh PROF 14(COMP METB)on 022 Albumin [Mass/Vol] 3.8 g/dL Normal 3.4-5.0 [facility] Comment on above: Performed By: #### L IPID, T7, CMP, TSH #### [facility] [address] [address] [address] Yaron Marsh Albumin/Globulin [Mass ratio] 1.2 {ratio} Normal [facility] Comment on above: Performed By: #### L IPID, T7, CMP, TSH #### [facility] [address] [place] [address] Dr. Yaron Marsh ALP [Catalytic activity/Vol] 94 U/L Normal 46-116 [facility] Comment on above: Performed By: #### L IPID, T7, CMP, TSH #### [facility] [address] [place] [address] Dr. Yaron Marsh ALT [Catalytic activity/Vol] 124 U/L Critically high 16-63 [facility] Comment on above: Performed By: #### L IPID, T7, CMP, TSH #### [facility] [address] [place] [address] Dr. Yaron Marsh Anion gap [Moles/Vol] 8.6 mmol/L Normal [facility] Comment on above: Performed By: #### L IPID, T7, CMP, TSH #### [facility] [address] [place] [address] Dr. Yaron Marsh AST [Catalytic activity/Vol] 79 U/L Critically high 15-37 [facility] Comment on above: Performed By: #### L IPID, T7, CMP, TSH #### [facility] [address] [address] [address] Yaron Marsh Bilirubin [Mass/Vol] 0.6 mg/dL Normal 0.2-1.0 [facility] Comment on above: Performed By: #### L IPID, T7, CMP, TSH #### [facility] [address] [place] [address] Dr. Yaron Marsh Calcium [Mass/Vol] 9.3 mg/dL Normal 8.5-10.1 [facility] Comment on above: Performed By: #### L IPID, T7, CMP, TSH #### [facility] [address] [place] [address] Dr. Yaron Marsh Chloride [Moles/Vol] 106 mmol/L Normal 98-107 [facility] Comment on above: Performed By: #### L IPID, T7, CMP, TSH #### [facility] [address] [address] [address] Yaron Marsh CO2 [Moles/Vol] 29.3 mmol/L Normal 21.0-32.0 [facility] Comment on above: Performed By: #### L IPID, T7, CMP, TSH #### [facility] [address] [address] [address] Yaron Marsh Creatinine [Mass/Vol] 0.69 mg/dL Critically low 0.70-1.30 [facility] Comment on above: Performed By: #### L IPID, T7, CMP, TSH #### [facility] [address] [address] [address] Yaron Marsh EGFR-AF MICRONESIAN >60 Normal >=60 [facility] Comment on above: Performed By: #### L IPID, T7, CMP, TSH #### [facility] [address] [address] [address] Yaron Marsh EGFR-NON AF MICRONESIAN >60 Normal >=60 [facility] Comment on above: Performed By: #### L IPID, T7, CMP, TSH #### [facility] [address] [address] [address] Yaron Marsh Globulin (S) [Mass/Vol] 3.3 g/dL Normal [facility] Comment on above: Performed By: #### L IPID, T7, CMP, TSH #### [facility] [address] [address] [address] Yaron Marsh Glucose [Mass/Vol] 104 mg/dL Normal 74-106 [facility] Comment on above: Performed By: #### L IPID, T7, CMP, TSH #### [facility] [address] [address] [address] Yaron Marsh Potassium [Moles/Vol] 4.9 mmol/L Normal 3.5-5.1 [facility] Comment on above: Performed By: #### L IPID, T7, CMP, TSH #### [facility] [address] [place] [address] Dr. Yaron Marsh Protein [Mass/Vol] 7.1 g/dL Normal 6.4-8.2 [facility] Comment on above: Performed By: #### L IPID, T7, CMP, TSH #### [facility] [address] [place] [address] Dr. Yaron Marsh Sodium [Moles/Vol] 139 mmol/L Normal 136-145 [facility] Comment on above: Performed By: #### L IPID, T7, CMP, TSH #### [facility] [address] [place] [address] Dr. Yaron Marsh Urea nitrogen [Mass/Vol] 18.0 mg/dL Normal 7.0-18.0 [facility] Comment on above: Performed By: #### L IPID, T7, CMP, TSH #### [facility] [address] [place] [address] Dr. Yaron Marsh Urea nitrogen/Creatinine [Mass ratio] 26.1 mg/mg Normal [facility] Comment on above: Performed By: #### L IPID, T7, CMP, TSH #### [facility] [address] [place] [address] Dr. Yaron Marsh [facility] 06-19-2022 TSH 3.272 uIU/mL Normal 0.358-3.740 [facility] Comment on above: Performed By: #### L IPID, T7, CMP, TSH #### [facility] [address] [place] [address] Dr. Yaron Marsh Vital Signs Date Time Vital Sign Value Performing Clinician Cesilia licona 03-31-2023 13:00-0400 Body height Didi Blades Other [facility] Other 03-31-2023 13:00-0400 Body mass index (BMI) [Ratio] 32.1 kg/m2 Didi Blades Other [facility] Other 03-31-2023 13:00-0400 Body weight 92.99 kg Didi Blades Other [facility] Other 03-31-2023 13:00-0400 Diastolic blood pressure 90 mm[Hg] Didi Blades Other [facility] Other 03-31-2023 13:00-0400 Systolic blood pressure 138 mm[Hg] Didi Blades Other [facility] Other Encounters Encounter Date Encounter Type Care Provider Facility Start: 03-31-2023 End: 03-31-2023 ambulatory Didi Blades Other [facility] Other Start: 03-31-2023 Office outpatient ne w 45 minutes Didi Blades [facility] Start: 12-06-2022 End: 12-07-2022 ambulatory ELIA BISHOP Facility:[facility] Start: 09-10-2022 End: 10-18-[address] FRANCIE CAMPBELL Facility:[facility] Start: 07-15-2022 End: 07-16-[address] CARLIN MERCADO . Facility:[facility] Start: 06-27-2022 End: 06-28-[address] CARLIN MERCADO . Facility:[facility] Start: 06-23-2022 Encounter for genera l adult medical examination without abnormal findings DR CARLIN MERCADO . [facility] Start: 06-19-2022 End: 06-20-[address] CARLIN MERCADO . Facility:[facility] Start: 06-19-2022 End: 06-20-2022 Encounter for general adult medical examination without abnormal findings DR CARLIN MERCADO . Facility:[facility] Procedures Date Procedure Procedure Detail Performing Clinician Start: 06-19-[address] JOHN MERCADO . Comment on above: Performed By: #### P [facility] #### [facility] [address] [place] [address] Dr. Yaron Marsh Payers Date Payer Category Payer Unknown [id number] 2.16.84 [id number] 1967 Unknown [id number] 2.16.84 [id number] 1967 Unknown [id number] 2.16.84 [id number] 1967 Unknown [id number] 2.16.84 [id number] 1967 Unknown [id number] 2.16.84 [id number] 1959 Unknown [id number] 1957 Unknown [id number] Social History Date Type Detail Facility Sex Assigned At [facility] Other Evaluation note Note Date & Type Note Facility Evaluation note No Information [facility] Other History general Narrative - Reported Note Date & Type Note Facility History general Narrative - Reported Type Medical History Gout Medical History high blood pressure Surgical History hernia repair Surgical History elbow surgery Hospitalization History see above surg. hx. [facility] Other Summary Purpose Family History No Family History Records Found Advance Directives No Advanced Directives Records Found Additional Source Comments (unrecognized sect ion and content) No Status Records Found INFORMATION SOURCE (unrecogn ized section and content) DATE CREATED AUTHOR 12/15/2022 [facility] REASON FOR VISIT (unrecogniz ed [...] BE BASED ON THE PRIMARY CLINICAL RECORDS. [facility] [facility]. provides no warranty or guarantee of the accuracy or completeness of information in this document.
== END 2025-06-03 14:49 | disposition home or self-care (01) ==
LOC: RAD 14:48
PROVIDERS: PCP Family Medicine; Visit Provider Family Medicine
DX: M54.50 Low back pain, unspecified (principal); M51.369 Other intervertebral disc degeneration, lumbar region without mention of lumbar back pain or lower extremity pain
CPT/HCPCS: 72110